=== PATIENT | female | born 1970 | race Caucasian/White ===

== ENCOUNTER 2024-04-18 10:42 | Emergency (ER) | payer BC, SELFPAY ==
[2024-04-18 10:49] VITALS: BP 117/101
--- NOTE | 2024-04-18 11:06 | ED.GENMED ---
History of Present Illness
General
Chief Complaint: Cold/Flu/URI Symptoms
Source: patient
Exam Limitations: none
Time Seen by Provider: 04/18/24 10:52
History of Present Illness
History of Present Illness:
53-year-old female presents with persistent cough and fever over the past 5 days. 3 days ago she saw her family doctor had a negative COVID test. She was thought to have a viral illness. Over the weekend she persisted to have a fever as high as
102 with persistent dry nonproductive cough. She notes myalgias. She notes fatigue. No vomiting. Remotely she has a history of aortic valve replacement with repair of aortic aneurysm. This resulted in infection 'around her heart.' She had
long-term antibiotics for this and repeat surgery. She is concerned that this may progress given her history. She does not smoke. No leg swelling or calf pain. She is not anticoagulated. She denies hemoptysis.
Past History
Past History
ED Past Medical History: Valvular disease (Moderate aortic regurgitation.), Psychiatric (Anxiety/depression), Other (Recurrent pericarditis, chronic daily chest pain) and Other (Questionable autoimmune disease although extensive workup has been
unremarkable.)
ED Past Surgical History: Cardiac (Aortic valve replacement January 2018), Tonsilectomy and Other ([place] teeth, gastric sleeve surgery 01/2007)
Social History
Tobacco: Non-smoker
Alcohol: None
Drug: Marijuana (Prescribed)
Personal:
Living: with family
Employment: Employed
Family History
Family History: Other (No significant)
Phy Exam
Physical Exam
Physical Exam:
General: Slightly ill-appearing female no acute respiratory distress
HEENT normocephalic atraumatic neck is supple
Heart: Regular rate and rhythm
Lungs: Coarse bilaterally slight wheeze no obvious rales
Abdomen is soft nontender nondistended extremities: No cyanosis or edema
Extremities: No cyanosis
Skin warm no rash
Course
Orders/Labs/Results
Orders:
Orders
04/18/24 11:04
Ipratropium/Albuterol Sulfate [Duoneb] 3 ml INH R NOW ONE
04/18/24 11:05
CR Chest - 2 Views Urgent
Comment:
Reason For Exam: cough, fever
04/18/24 11:09
0.9% Sodium Chloride 1000 ml [Nss] 1,000 ml IV BOLUS
04/18/24 11:11
COVID-19 Antigen Urgent
Source: Nasal Swab
Complete Blood Count/With Diff Urgent
Comprehensive Metabolic Panel Urgent
Influenza A+B Rapid Molecular Urgent
BOYD Source: Nasal Swab
Specimen Description:
04/18/24 11:54
Ketorolac [Toradol] 15 mg IV NOW STA
Abnormal Lab Results
04/18/24
11:11
MPV 10.6 H fL
(7.4-10.4)
Absolute Lymphs (auto) 1.0 L 10^3/uL
(1.2-3.4)
Neutrophils % 75.3 H %
(42.2-75.2)
Lymphocytes % 13.8 L %
(20.5-51.1)
Carbon Dioxide 21 L mmol/L
(22-30)
Glucose 132 H mg/dl
(70-99)
AST 47 H U/L
(14-36)
Total Protein 6.2 L g/dl
(6.3-8.2)
04/18/24 11:11
04/18/24 11:11
Vital Signs
Initial and Last Documented VS:
Initial Vital Signs
Temp Pulse Resp BP Pulse Ox
99.3 F 89 16 117/101 698
04/18/24 10:49 04/18/24 10:49 04/18/24 10:49 04/18/24 10:49 04/18/24 10:49
Last Documented Vital Signs
Temp Pulse Resp BP Pulse Ox
99.2 F 89 16 117/101 698
04/18/24 11:21 04/18/24 10:49 04/18/24 10:49 04/18/24 10:49 04/18/24 10:49
MDM/Problems Addressed
Differential Diagnosis Includes:
Fever cough fatigue. Question viral illness such as influenza or COVID. These tests are pending. Will check for pneumonia with x-ray. DuoNeb ordered. Check labs.
*Critical Care Note
Total Time (30-74mins, 75-104mins- exclusive of procedures): Not Applicable
Update Note
Update Note:
Patient tested positive for influenza B COVID-negative chest x-ray clear labs reviewed without significant finding. She was hydrated and given DuoNeb and Toradol. She is resting comfortably. Consider Tamiflu however not indicated at this time
given duration of illness. Recommended supportive care at home with fluids rest and NSAIDs. Stable for discharge
ED Attending Note
-
Portions of this chart may have been created with voice recognition software.� Occasional wrong word or��sound alike� substitutions may have occurred due to the inherent limitations of voice recognition software.
Discharge Plan
Departure
Patient Disposition: Home (Routine Discharge)
Date of Disposition: 04/18/24
Time of Disposition: 13:00
Patient with high blood pressure during this ER visit?: No
Discharge Problem:
Influenza B
Instructions: Viral Syndrome (DC)
Prescriptions:
No Action
lisinopril 5 MG tablet
5 mg PO DAILY
bupropion HCl 150 MG tablet extended release 24 hr
150 mg PO DAILY
ibuprofen-famotidine [Duexis] 1 EACH tablet
1 ea PO BID
cephalexin [Keflex] 500 MG capsule
500 mg PO Q6 Qty: 28 0RF
Saccharomyces boulardii [Florastor] 250 MG capsule
250 mg PO BID Qty: 30 0RF
Referrals:
Jermaine Medellin MD [Family Provider] -
Activity Restrictions/Additional Instructions:
Rest. Drink plenty of fluids. You may use ibuprofen or Tylenol for fever. Return for worsening symptoms otherwise follow-up with family doctor
Interventions
Interventions:
*Risk Screen - Suicide Last Done: 04/18/24 11:39
*General Assessment Last Done: 04/18/24 11:39
*Neglect/Abuse Screening Last Done: 04/18/24 11:39
ED- Pulmonary Assessment Last Done: 04/18/24 11:38
Discharge Date and Time
Print Language: CONGOLESE
[2024-04-18] MEDS: DUONEB 3 ML INH (11:21)
[2024-04-18] MEDS: NSS 1000 IV (11:22)
[2024-04-18 11:29] LABS: % Basophils 0.6 % (0-2); % Eosinophils 1.3 % (0-6); % Immature Granulocytes 0.4 % (0-0.5); % Lymphocytes 13.8 % (20.5-51.1); % Monocytes 8.6 % (1.7-9.3); % Neutrophils 75.3 % (42.2-75.2); Absolute Eosinophils 0.1 10^3/uL (0-0.7); Absolute Monocytes 0.6 10^3/uL (0.1-0.6); Absolute Neutrophils 5.2 10^3/uL (1.4-6.5); Hematocrit 38.3 % (37.0-47.0); Hemoglobin 13.2 g/dL (12.0-16.0); Mean Corp Hgb Conc. 34.5 g/dL (33.0-37.0); Mean Corpuscular Hgb 30.9 pg (27.0-31.0); Mean Corpuscular Volume 89.7 fL (81.0-99.0); Mean Platelet Volume 10.6 fL (7.4-10.4); Nucleated Red Blood Cells % 0 %; Platelet Count 197 10^3/uL (130-400); Red Blood Cell Count 4.27 10^6/uL (4.20-5.40); Red Cell Dist. Width 12.4 % (11.5-14.5); White Blood Cell Count 6.9 10^3/uL (4.8-10.8)
[2024-04-18 11:49] LABS: COVID-19 Antigen Negative (Negative)
[2024-04-18] MEDS: TORADOL 15 MG IV (11:56)
[2024-04-18 11:58] LABS: ALT (SGPT) 32 U/L (0-35); AST (SGOT) 47 U/L (14-36); Albumin 3.9 g/dl (3.5-5.0); Alkaline Phosphatase 110 U/L (38-126); Blood Urea Nitrogen 16 mg/dl (7-17); Calcium 9.7 mg/dl (8.4-10.2); Carbon Dioxide 21 mmol/L (22-30); Chloride 104 mmol/L (98-107); Glucose 132 mg/dl (70-99); Potassium 3.8 mmol/L (3.5-5.1); Sodium 138 mmol/L (135-145); Total Bilirubin 0.8 mg/dl (0.2-1.3); Total Protein 6.2 g/dl (6.3-8.2); eGFR > 60.00
[2024-04-18 13:16] VITALS: BP 112/96
== END 2024-04-18 14:25 | disposition home or self-care (01) ==
LOC: EMR 10:42
PROVIDERS: Physician Assistant; EMERGENCY PHYSICIAN Emergency Medicine; FAMILY PHYSICIAN Internal Medicine
DX: J10.1 Influenza due to other identified influenza virus with other respiratory manifestations (principal); Z11.52 Encounter for screening for COVID-19; F41.9 Anxiety disorder, unspecified; F32.A Depression, unspecified; Z95.2 Presence of prosthetic heart valve; Z98.84 Bariatric surgery status; Z88.1 Allergy status to other antibiotic agents; Z88.2 Allergy status to sulfonamides
CPT/HCPCS: 99284; 96374; 96361; 94640; 71046; 80053; 85025; 87502; 87811

== ENCOUNTER → 2024-08-29 15:16 | Outpatient (REF) | payer BC, SELFPAY | LOC: HWRAD 15:16 | PROVIDERS: ATTENDING PHYSICIAN Hospitalist | DX: R51.9 Headache, unspecified (principal) | CPT/HCPCS: 70450 ==

== ENCOUNTER → 2024-10-22 14:44 | Outpatient (REF) | payer BC, SELFPAY | LOC: WDC 14:44 | PROVIDERS: ATTENDING PHYSICIAN Hospitalist | DX: Z12.31 Encounter for screening mammogram for malignant neoplasm of breast (principal) | CPT/HCPCS: 77063; 77067 ==

== ENCOUNTER 2024-12-27 13:56 | Inpatient (IN) | payer BC, SELFPAY ==
[2024-12-27] VITALS (13 sets, daily range): BP systolic 164–190; BP diastolic 89–108; BMI 26.3; BMI 24.4
[2024-12-27 07:40] LABS: % Basophils 0.6 % (0-2); % Eosinophils 0.7 % (0-6); % Immature Granulocytes 0.2 % (0-0.5); % Lymphocytes 17.9 % (20.5-51.1); % Monocytes 6.5 % (1.7-9.3); % Neutrophils 74.1 % (42.2-75.2); Absolute Basophils 0.1 10^3/uL (0-0.2); Absolute Eosinophils 0.1 10^3/uL (0-0.7); Absolute Lymphocytes 2.2 10^3/uL (1.2-3.4); Absolute Monocytes 0.8 10^3/uL (0.1-0.6); Absolute Neutrophils 9.2 10^3/uL (1.4-6.5); Hematocrit 41.2 % (37.0-47.0); Hemoglobin 14.7 g/dL (12.0-16.0); Mean Corp Hgb Conc. 35.7 g/dL (33.0-37.0); Mean Corpuscular Hgb 31.9 pg (27.0-31.0); Mean Corpuscular Volume 89.4 fL (81.0-99.0); Mean Platelet Volume 10.1 fL (7.4-10.4); Nucleated Red Blood Cells % 0 %; Platelet Count 246 10^3/uL (130-400); Red Blood Cell Count 4.61 10^6/uL (4.20-5.40); Red Cell Dist. Width 12.3 % (11.5-14.5); White Blood Cell Count 12.4 10^3/uL (4.8-10.8)
[2024-12-27 07:55] LABS: ALT (SGPT) 19 U/L (0-35); AST (SGOT) 26 U/L (14-36); Albumin 4.8 g/dl (3.5-5.0); Alkaline Phosphatase 86 U/L (38-126); Blood Urea Nitrogen 23 mg/dl (7-17); Calcium 10.2 mg/dl (8.4-10.2); Carbon Dioxide 21 mmol/L (22-30); Chloride 108 mmol/L (98-107); Glucose 157 mg/dl (70-99); Lipase 237 U/L (23-300); Potassium 3.5 mmol/L (3.5-5.1); Sodium 142 mmol/L (135-145); Total Bilirubin 1.4 mg/dl (0.2-1.3); Total Protein 7.3 g/dl (6.3-8.2); eGFR 58.97
--- NOTE | 2024-12-27 08:53 | ED.GENMED ---
History of Present Illness
General
Chief Complaint: Abdominal Symptoms
Source: patient
Exam Limitations: none
Time Seen by Provider: 12/27/24 08:45
History of Present Illness
History of Present Illness:
54yoF with a history of hypertension, cluster headaches, and depression presenting for evaluation of vomiting. Symptoms woke her up from sleep around 3 AM this morning. She reports pain in her epigastric region, nausea, and vomiting. She is also
having some loose bowel movements. She is concerned she may be having a medication side effect. She started taking Zepbound about 3 months ago for weight loss. She is otherwise asymptomatic and denies any chest pain, shortness of breath,
hematemesis, fevers. She denies any suspicious food intake, recent travel, or sick contacts. Previous abdominal surgeries include a gastric sleeve in 2015.
Past History
Past History
ED Past Medical History: Valvular disease (Moderate aortic regurgitation.), Psychiatric (Anxiety/depression), Other (Recurrent pericarditis, chronic daily chest pain) and Other (Questionable autoimmune disease although extensive workup has been
unremarkable.)
ED Past Surgical History: Cardiac (Aortic valve replacement January 2018), Tonsilectomy and Other ([place] teeth, gastric sleeve surgery 01/2007)
Social History
Tobacco: Non-smoker
Alcohol: None
Drug: Marijuana (Prescribed)
Personal:
Living: with family
Employment: Employed
Family History
Family History: Other (No significant)
Phy Exam
Physical Exam
Physical Exam:
Actively retching during exam
General Physical Exam
General Presentation: well appearing and mild distress
General Skin: warm and dry
General Habitus: normal
General Mental: alert
ENT Exam
ENT Exam: normocephalic
Cardiovascular Exam
Cardiovascular Exam: regular rate/rhythm
Pulmonary Exam
Pulmonary Exam: lungs clear, no respiratory distress, no rales, no crackles, no rhonchi and no wheezing
Gastrointestinal Exam
Gastrointestinal Exam: soft, non distended and tender (+Epigastric tenderness. Abdomen soft, non-distended. No rebound or guarding.)
Neurological Exam
Neurological Exam: alert
Douglas Coma Scale
Eye Opening: Spontaneous
Verbal Response: Oriented
Motor Response: Obeys Commands
GCS Total Score: 15
Skin Exam
Skin Exam: normal color and warm/dry
Psychiatric Exam
Psychiatric Exam: normal mood/affect
Course
Orders/Labs/Results
Orders:
Orders
12/27/24 07:14
Electrocardiogram (*1) Urgent
Reason for Study: Abdominal Pain
EKG- Treatment ONCE
12/27/24 07:26
Complete Blood Count/With Diff Urgent
Comprehensive Metabolic Panel Urgent
Lipase Urgent
12/27/24 08:52
CT Abd/pel W Iv And Oral Contr Urgent
Comment:
Reason For Exam: epigastric pain, vomiting, prior gastric sleeve
0.9% Sodium Chloride 1000 ml [Nss] 1,000 ml IV BOLUS
Iohexol [Omnipaque] See Protocol PO NOW STA
Ondansetron Injectable [Zofran] 4 mg IV NOW STA
12/27/24 08:58
Lactate Level [Lactic Acid] Urgent
Troponin I Urgent
12/27/24 09:26
Diphenhydramine [Benadryl] 25 mg IV NOW STA
Metoclopramide [Reglan] 10 mg IV NOW STA
12/27/24 10:19
droPERidol [Inapsine] 1.25 mg IV NOW STA
12/27/24 10:20
Cardiac Monitoring- Treatment ONCE
12/27/24 13:31
Admit/Transfer Patient As Directed
Co-Sign Provider:
Level of Care: Inpatient admission
Assign to:: Medical/Surgical
Physician / Group: [id number]
Diagnosis: acute pancolitis
Reason for Hospitalization: acute pancolitis
Expected length of stay greater than two midnights?: Yes
ELOS- Estimated Length of Stay in days: 2
I certify the patient meets the requirements for IP care: Yes
12/27/24 13:32
Code Status As Directed
Resuscitation Status: Full Code
PRN Pain Medication Management As Directed
May give lesser potent ordered pain med per pt: Yes
preference::
Protocol:: Medication orders for pain may be administered in a
manner that supports deferring to patient preference
when the pt is:
- Requesting an ordered lesser potent pain medication.
Least to most potent pain medications are defined
as: acetaminophen < NSAID < tramadol < opioids
(morphine, oxycodone, hydromorphone).
- Requesting a lesser dose of the same medication IF
ORDERED.
- Requesting a less intrusive route of administration
if both routes are prescribed by the provider (PO <
IV).
12/27/24 13:38
Norovirus by PCR Routine
BOYD Source: Feces/Stool
Specimen Description:
Stool Culture Routine
BOYD Source: Feces/Stool
Specimen Description:
Abnormal Lab Results
12/27/24 12/27/24
07:26 08:58
WBC 12.4 H 10^3/uL
(4.8-10.8)
MCH 31.9 H pg
(27.0-31.0)
Absolute Neuts (auto) 9.2 H 10^3/uL
(1.4-6.5)
Absolute Monos (auto) 0.8 H 10^3/uL
(0.1-0.6)
Lymphocytes % 17.9 L %
(20.5-51.1)
Chloride 108 H mmol/L
(98-107)
Carbon Dioxide 21 L mmol/L
(22-30)
BUN 23 H mg/dl
(7-17)
Creatinine 1.1 H mg/dL
(0.6-1.0)
Glucose 157 H mg/dl
(70-99)
Lactic Acid 2.9 H mmol/L
(0.7-2.0)
Total Bilirubin 1.4 H mg/dl
(0.2-1.3)
12/27/24 07:26
12/27/24 07:26
Vital Signs
Initial and Last Documented VS:
Initial Vital Signs
Temp Pulse Resp BP Pulse Ox
98.3 F 87 16 174/102 98
12/27/24 07:11 12/27/24 07:11 12/27/24 07:11 12/27/24 07:11 12/27/24 07:11
Last Documented Vital Signs
Temp Pulse Resp BP Pulse Ox
98.3 F 81 24 184/92 97
12/27/24 07:11 12/27/24 15:30 12/27/24 15:30 12/27/24 14:00 12/27/24 15:30
MDM/Problems Addressed
Differential Diagnosis Includes:
54yoF here with n/v and abd pain since 3am. Hx of gastric sleeve. Started on Zepbound 3 months ago. She is hypertensive with otherwise stable vitals. She is retching during exam. No signs of peritonitis on abdominal exam. Differential diagnosis
includes but is not limited to: gastroenteritis, internal hernia/SBO, pancreatitis, dehydration
Initial ED plan: Labs sent in triage. WBC 12.9. Creatinine 1.1. EKG shows NSR with ST/T wave changes which are new from prior EKG in 2021. She denies any chest pain. Will check troponin, lactate, and CT abdomen with IV/PO contrast. IV Zofran and
fluid bolus.
*EKG
Interpreted by ED Provider?: Yes
EKG Intrepretation Date: 12/27/24
Heart Rate: 65
Rate: normal
Rhythm: sinus
Girdler: normal axis
Interval: normal interval
Ischemia: non-specific ST changes (ST/T wave changes in inferolateral leads)
*Critical Care Note
Total Time (30-74mins, 75-104mins- exclusive of procedures): Not Applicable
Update Note
Update Note:
Troponin WNL. Lactate 2.3. CT shows mild pancolitis with L hydronephrosis from chronic UPJ obstruction. Patient with persistent vomiting and requiring multiple rounds of antiemetics. She was ultimately given Reglan, Benadryl, and droperidol without
improvement. She is unable to tolerate PO intake and patient admitted for intractable symptoms.
ED Attending Note
-
Portions of this chart may have been created with voice recognition software.� Occasional wrong word or��sound alike� substitutions may have occurred due to the inherent limitations of voice recognition software.
Discharge Plan
Departure
Patient Disposition: Admit
Date of Disposition: 12/27/24
Time of Disposition: 13:15
Presentation/result/management discussed w/ accepting MD/DO: Hospitalist
Discharge Problem:
Intractable nausea and vomiting
Interventions
Interventions:
*Risk Screen - Suicide Last Done: 12/27/24 07:11
*General Assessment Last Done: 12/27/24 09:04
*Neglect/Abuse Screening Last Done: 12/27/24 07:11
*ED- Fall Risk Assessment Last Done: 12/27/24 09:04
*ED COVID-19 Vaccine History Last Done: 12/27/24 09:04
SN-Qobqiq-Ghqadzruof Assessment Last Done: 12/27/24 09:04
[2024-12-27] MEDS: ZOFRAN 4 MG IV ×2 (09:02→17:39)
[2024-12-27] MEDS: NSS 1000 IV ×2 (09:02→17:38)
[2024-12-27] MEDS: OMNIPAQUE 50 ML PO (09:19)
[2024-12-27 09:24] LABS: Lactic Acid 2.9 mmol/L (0.7-2.0)
[2024-12-27] MEDS: REGLAN 10 MG IV (09:28)
[2024-12-27] MEDS: BENADRYL 25 MG IV (09:28)
[2024-12-27 09:36] LABS: Troponin I < 0.012 ng/ml
[2024-12-27] MEDS: INAPSINE 1.25 MG IV (10:23)
--- NOTE | 2024-12-27 13:34 | HPS.HSE ---
Family Physician
-
Family Physician: Eloisa Castillo MD
Chief Complaint
-
vomiting
History of Present Illness
54-year-old female past medical history of gastric sleeve, aortic valve replacement, recurrent pericarditis, possible undiagnosed rheumatologic condition, hypertension, cluster headaches, anxiety/depression, presenting with vomiting since this
morning. She has pain in the epigastric region, nausea and vomiting. She also has slight loose stools. She started taking Zepbound 3 months ago for weight loss and has some nausea from the but no severe side effects.. Denies any chest pain,
shortness of breath, fever. Denies any recent restaurant food or outside food, sick contacts. Denies any fevers or chills.
She had a urinary tract infection 2 weeks ago treated with antibiotics. She denies any urinary symptoms such as dysuria or frequency at this time. She denies any history of urologic instrumentation. Denies any history of urologic problems
previously. Denies blood in the urine. Denies flank pain. No history of kidney stones.
She does use medical marijuana. Denies smoking. Denies alcohol.
Medical History
Past Medical History
Past Medical History: Reports Other (gastric sleeve, aortic valve replacement, recurrent pericarditis, possible undiagnosed rheumatologic condition, hypertension, cluster headaches, anxiety/depression, )
Past Surgical History: Reports Other (Cardiac (Aortic valve replacement January 2018), Tonsilectomy and Other ([place] teeth, gastric sleeve surgery 01/2007))
Social History
Tobacco: Non-smoker
Alcohol: None
Drug: Marijuana
Family History
Family History: Not pertinent
Allergies / Home Medications
Allergies reflects when Allergies were last updated in [facility].
Home Medications with original date entered in [facility]
Allergy/Medication List:
Allergies
Allergy/AdvReac Type Severity Reaction Status Date / Time
erythromycin base Allergy Vomiting Verified 12/27/24 07:11
[Erythromycin Base]
Sulfa (Sulfonamide Allergy Unknown Verified 12/27/24 07:11
Antibiotics)
Home Medications
bupropion HCl 300 mg 24 hr tablet, extended release (Wellbutrin XL) 300 mg PO DAILY 12/27/24
escitalopram oxalate 10 mg tablet (Lexapro) 10 mg PO HS 12/27/24
lorazepam 0.5 mg tablet 0.5 mg PO HSPRN PRN SLEEP 12/27/24
tirzepatide (weight loss) 5 mg/0.5 mL subcutaneous pen injector (Zepbound) 5 mg SC WE 12/27/24
verapamil 40 mg tablet 40 mg PO TID 12/27/24
Review of Systems
-
History Source: Patient
A 12 point ROS was completed and negative except as noted: Yes
Constitutional: Reports No Symptoms
EENT: Reports No Symptoms
Respiratory: Reports No Symptoms
Cardiac: Reports No Symptoms
Abdomen/GI: Reports See HPI
: Reports No Symptoms
Musculoskeletal: Reports No Symptoms
Skin: Reports No Symptoms
Neurological: Reports No Symptoms
Endocrine: Reports No Symptoms
Hematologic/Lymphatic: Reports No Symptoms
Psych: Reports No Symptoms
Physical Exam
Vital Signs
Vital Signs
Temp Pulse Resp BP Pulse Ox
98.3 F 82 25 182/96 98
12/27/24 07:11 12/27/24 13:00 12/27/24 13:00 12/27/24 13:00 12/27/24 13:00
Physical Exam
General: Well Developed, Well Nourished and No Apparent Distress
HEENT: NormoCephalic, Moist mucous membranes and Atraumatic
Respiratory: Clear
Cardiac: S1/S2 and Regular Rhythm; No Murmur or Rub
GI: Soft, Non Distended, Normal Bowel Sounds and Tender; No Organomegaly
Rectal: Deferred by Provider
Musculoskeletal: No Clubbing, No Cyanosis and No Edema
Skin: No Rash
Neuro: Nonfocal/grossly intact
Laboratory Results
-
12/27/24 07:26
12/27/24 07:26
Laboratory Results
Lactic Acid 2.9 mmol/L (0.7-2.0) H 12/27/24 08:58
Total Bilirubin 1.4 mg/dl (0.2-1.3) H 12/27/24 07:26
AST 26 U/L (14-36) 12/27/24 07:26
ALT 19 U/L (0-35) 12/27/24 07:26
Alkaline Phosphatase 86 U/L (38-126) 12/27/24 07:26
Troponin I < 0.012 ng/ml 12/27/24 08:58
Lipase 237 U/L (23-300) 12/27/24 07:26
Data Reviewed
-
Lab Data: Labs Reviewed by me
Old Records: Reviewed
Impression/Plan
-
IMPRESSION:
PLAN:
# Acute pancolitis likely viral
-Lipase 237
-Leukocytosis
-Lactic acid 2.9
-CT abdomen pelvis shows suspected mild uncomplicated pancolitis likely infectious/inflammatory, trace intravesical gas possibly cystitis or recent instrumentation, moderate left hydronephrosis with markedly dilated renal pelvis progress from prior
likely chronic UPJ obstruction
- N.p.o.
- IV fluids
-Hold off antibiotics
- Hold Zepbound
- Check norovirus, stool culture if able
- As needed Dilaudid, Zofran as needed
# Acute kidney injury likely.
- IV fluids
#Moderate left hydronephrosis with markedly dilated renal pelvis likely chronic UPJ obstruction
-Had UTI 2 weeks ago successfully treated
-No urinary symptoms currently
- Outpatient follow-up with urology
# Uncontrolled hypertension secondary to abdominal pain
- Blood pressure 180s
- As needed hydralazine
# History of gastric sleeve
Obesity
- Hold Zepbound
Aortic valve replacement
History of recurrent pericarditis
History of possible undiagnosed rheumatological condition
Essential hypertension
- Continue verapamil
History of cluster headaches
Anxiety/depression
- Continue Ativan, Lexapro, bupropion
Medical marijuana user
Full code
DVT prophylaxis�heparin
N.p.o.
--- NOTE | 2024-12-27 14:31 | CM ---
CM met with pt bedside
Pt resides with her SO in a 2SH with 13STE and full flight to 2nd floor
SO's 2 dtrs are in the home part-time
Pt is indep with her ADLs, works FT out of the home
Denies use of DMEs and financial insecurities
PCP- Eloisa Castillo
Rx- [facility] [address]
Discharge Disposition- anticipate home no needs
[2024-12-27] MEDS: ISOPTIN 40 MG PO ×2 (17:49→21:10)
[2024-12-27] MEDS: DILAUDID 0.25 MG IV (21:10)
[2024-12-27] MEDS: HEPARIN 5000 UNITS SC (21:13)
[2024-12-28 00:08] VITALS: BP 174/70
[2024-12-28] MEDS: ZOFRAN 4 MG IV ×3 (00:53→16:24)
[2024-12-28] MEDS: DILAUDID 0.25 MG IV ×2 (06:31→21:31)
[2024-12-28] MEDS: NSS 1000 IV ×2 (06:33→16:11)
[2024-12-28 07:38] VITALS: BP 135/74
[2024-12-28] MEDS: WELLBUTRIN XL (24 hour extended release) 300 MG PO (08:25)
[2024-12-28] MEDS: ISOPTIN 40 MG PO ×3 (08:25→21:25)
[2024-12-28] MEDS: HEPARIN 5000 UNITS SC ×2 (08:26→19:31)
[2024-12-28 08:36] LABS: % Basophils 0.2 % (0-2); % Immature Granulocytes 0.4 % (0-0.5); % Lymphocytes 9.7 % (20.5-51.1); % Monocytes 8.8 % (1.7-9.3); % Neutrophils 80.9 % (42.2-75.2); Absolute Lymphocytes 1.1 10^3/uL (1.2-3.4); Absolute Neutrophils 9.1 10^3/uL (1.4-6.5); Hematocrit 37.7 % (37.0-47.0); Hemoglobin 13.5 g/dL (12.0-16.0); Mean Corp Hgb Conc. 35.8 g/dL (33.0-37.0); Mean Corpuscular Hgb 32.1 pg (27.0-31.0); Mean Corpuscular Volume 89.5 fL (81.0-99.0); Mean Platelet Volume 9.8 fL (7.4-10.4); Nucleated Red Blood Cells % 0 %; Platelet Count 202 10^3/uL (130-400); Red Blood Cell Count 4.21 10^6/uL (4.20-5.40); Red Cell Dist. Width 12.4 % (11.5-14.5); White Blood Cell Count 11.2 10^3/uL (4.8-10.8)
[2024-12-28 09:44] LABS: ALT (SGPT) 18 U/L (0-35); AST (SGOT) 34 U/L (14-36); Albumin 4.3 g/dl (3.5-5.0); Alkaline Phosphatase 71 U/L (38-126); Blood Urea Nitrogen 16 mg/dl (7-17); Calcium 9.4 mg/dl (8.4-10.2); Carbon Dioxide 22 mmol/L (22-30); Chloride 110 mmol/L (98-107); Estimated Creatinine Clearance 77 ml/min; Glucose 79 mg/dl (70-99); Potassium 3.4 mmol/L (3.5-5.1); Sodium 141 mmol/L (135-145); Total Bilirubin 1.3 mg/dl (0.2-1.3); Total Protein 6.5 g/dl (6.3-8.2); eGFR > 60.00
[2024-12-28 10:10] LABS: Lactic Acid 2.1 mmol/L (0.7-2.0)
[2024-12-28] MEDS: TIGAN 200 MG IM (10:39)
--- NOTE | 2024-12-28 12:15 | CM ---
Chart reviewed and mental health case manager met with patient this am, plan is to home when stable, no needs.
Plan; Home when stable.
[2024-12-28] MEDS: COMPAZINE 10 MG IV (12:26)
--- NOTE | 2024-12-28 13:05 | W.PN.HOSP.TC ---
Today's Communication/Plan
-
Monitor vital signs see plan
Check stool studies
Urology evaluation
Check UA
If symptoms continue to get worse then will start antibiotics
Trend lactate
Assessment / Plan
Assessment / Plan
General: Well Developed, Well Nourished and No Apparent Distress
HEENT: NormoCephalic, Moist mucous membranes and Atraumatic
Respiratory: Clear
Cardiac: S1/S2 and Regular Rhythm; No Murmur or Rub
GI: Soft, Non Distended, Normal Bowel Sounds and Tender
Musculoskeletal: No Edema
Neuro: Nonfocal/grossly intact
abd pain V,V likely 2.2 pancolitis, also has moderate left hydronephrosis with markedly dilated renal pelvis with chronic UPJ obstruction. Discussed with patient and she never had any history of UPJ obstruction. Recently treated with UTI. Check
UA.
meets SIRS criteria (leukocytosis, tachypnea)
-Lipase 237
-Leukocytosis
-Lactic acidosis; trend. check bcx
-CT abdomen pelvis shows suspected mild uncomplicated pancolitis likely infectious/inflammatory, trace intravesical gas possibly cystitis or recent instrumentation, moderate left hydronephrosis with markedly dilated renal pelvis progress from prior
likely chronic UPJ obstruction
- N.p.o. for now
- IV fluids
-Hold off antibiotics
- Hold Zepbound
- Check norovirus, stool culture if able; cdiff given recent abx. If symptoms do not improve then will need to start antibiotic
- As needed Dilaudid, Zofran as needed
# Acute kidney injury likely.
- IV fluids
#Moderate left hydronephrosis with markedly dilated renal pelvis likely chronic UPJ obstruction
-Had UTI 2 weeks ago successfully treated
check ua
consult urology
hypokalemia
replete
# Uncontrolled hypertension secondary to abdominal pain
- As needed hydralazine
# History of gastric sleeve
Obesity
- Hold Zepbound
Aortic valve replacement
History of recurrent pericarditis
History of possible undiagnosed rheumatological condition
Essential hypertension
- Continue verapamil
History of cluster headaches
Anxiety/depression
- Continue Ativan, Lexapro, bupropion
Medical marijuana user
Full code
DVT prophylaxis�heparin
Anticipated Discharge: 24 - 48 hours
Subjective/Interval History
-
Date of Service: December 28, 2024
has nausea
Objective Data
-
Labs:
Laboratory Results
12/28/24
08:25
WBC 11.2 H
Hgb 13.5
Hct 37.7
Plt Count 202
Sodium 141
Potassium 3.4 L
Chloride 110 H
Carbon Dioxide 22
BUN 16
Creatinine 0.7
Glucose 79
Calcium 9.4
Total Bilirubin 1.3
AST 34
ALT 18
Alkaline Phosphatase 71
Vital Signs:
Vital Signs
Temp Pulse Resp BP Pulse Ox
98.1 F 63 17 135/74 96
12/28/24 07:38 12/28/24 08:25 12/28/24 07:38 12/28/24 08:25 12/28/24 07:38
I&O
12/27/24 12/28/24 12/29/24
06:59 06:59 06:59
Intake Total 1000 / 1000
Output Total 150 / 150 50 / 50
Balance 850 / 850 -50 / -50
[2024-12-28] MEDS: KCL 260 MEQ IV (13:49)
[2024-12-28 14:33] LABS: Lactic Acid 0.8 mmol/L (0.7-2.0)
[2024-12-28 15:15] VITALS: BP 169/101
[2024-12-28 16:20] LABS: Urine Albumin 2+ (Neg - Trace); Urine Bilirubin Negative (Negative); Urine Character Clear (Clear); Urine Color Yellow; Urine Glucose Negative (Negative); Urine Ketone 3+ (Negative); Urine Leukocyte Negative (Negative); Urine Nitrite Negative (Negative); Urine Occult Blood 3+ (Negative); Urine Specific Gravity 1.015 (<1.030); Urine Urobilinogen Negative (Neg - 1+)
[2024-12-28 16:32] LABS: Urine Squamous Cell >30 /LPF (Few)
[2024-12-28 16:33] LABS: Urine Bacteria Few (Negative)
--- NOTE | 2024-12-28 17:49 | W.PN.URO.CBU ---
Today's Communication / Plan
-
no gu changes
Assessment / Plan
-
asx left upj getting worse I doubt this is etiology of todays admit nor is it the source ofn uti 2 aweeks ago but it needs outpatient follow up and possible repair Also air in bladder probaly fron uti 2 weeks ago but needs reevaluation to
make sure its not enterovesical fistula
Diagnosis
-
Date of Service: December 28, 2024
-
Patient Diagnosis:
congenital leftupj stone
Post Op Day:
Objective
-
Vital Signs
Temp Pulse Resp BP Pulse Ox
99.2 F 88 18 169/101 96
12/28/24 15:15 12/28/24 16:09 12/28/24 15:15 12/28/24 16:09 12/28/24 15:15
Intake and Output
12/27/24 12/28/24 12/29/24
06:59 06:59 06:59
Intake Total 1000 / 1000 970 / 970
Output Total 150 / 150 50 / 50
Balance 850 / 850 920 / 920
Intake:
Oral fluids 720 / 720
IV fluids (Total) 1000 / 1000
IV piggybacks 250 / 250
Output:
Emesis 150 / 150 50 / 50
Other:
Number of approximated MODERATE 2
amounts of urine
Number of approximated LARGE 1
amounts of urine
Number of immeasurable emeses? 2 1
Laboratory Results
12/28/24 08:25
12/28/24 08:25
Review of Systems
-
Abdomen/GI: Abdominal Pain and Nausea
: No Symptoms
Physical Exam
-
General - well developed, well nourished, no acute distress
Chest - clear bilaterally
Abdomen - soft, non-tender, positive bowel sounds, no CVAT, no incisional pain or distention
Genitalia - normal
Rectal - normal
Skin - warm & dry with no rash
Neuro - AOx3, no motor deficits
Extremities - no clubbing, no cyanosis, no edema
Care Review
Data Reviewed
Discussed with: Hospitalist
CT Scan: Image Pers Reviewed
[2024-12-28] MEDS: COMPAZINE 5 MG IV (19:31)
[2024-12-28 23:17] VITALS: BP 158/76
[2024-12-29] MEDS: DILAUDID 0.5 MG IV ×2 (01:31→15:37)
[2024-12-29] MEDS: NSS 1000 IV ×2 (02:28→14:09)
[2024-12-29 07:35] VITALS: BP 166/99
[2024-12-29] MEDS: DILAUDID 0.25 MG IV ×3 (07:52→22:22)
[2024-12-29] MEDS: WELLBUTRIN XL (24 hour extended release) 300 MG PO (07:57)
[2024-12-29] MEDS: HEPARIN 5000 UNITS SC ×2 (07:58→19:33)
[2024-12-29] MEDS: ISOPTIN 40 MG PO ×3 (08:10→21:00)
[2024-12-29 09:00] LABS: % Basophils 0.3 % (0-2); % Immature Granulocytes 0.3 % (0-0.5); % Lymphocytes 10.5 % (20.5-51.1); % Monocytes 11.4 % (1.7-9.3); % Neutrophils 77.5 % (42.2-75.2); Absolute Monocytes 1.1 10^3/uL (0.1-0.6); Absolute Neutrophils 7.3 10^3/uL (1.4-6.5); Hematocrit 41.7 % (37.0-47.0); Hemoglobin 14.6 g/dL (12.0-16.0); Mean Corpuscular Hgb 31.5 pg (27.0-31.0); Mean Corpuscular Volume 89.9 fL (81.0-99.0); Mean Platelet Volume 10.1 fL (7.4-10.4); Nucleated Red Blood Cells % 0 %; Platelet Count 217 10^3/uL (130-400); Red Blood Cell Count 4.64 10^6/uL (4.20-5.40); Red Cell Dist. Width 12.6 % (11.5-14.5); White Blood Cell Count 9.4 10^3/uL (4.8-10.8)
[2024-12-29 09:20] LABS: ALT (SGPT) 20 U/L (0-35); AST (SGOT) 48 U/L (14-36); Alkaline Phosphatase 79 U/L (38-126); Blood Urea Nitrogen 12 mg/dl (7-17); Calcium 9.4 mg/dl (8.4-10.2); Carbon Dioxide 27 mmol/L (22-30); Chloride 105 mmol/L (98-107); Estimated Creatinine Clearance 77 ml/min; Glucose 93 mg/dl (70-99); Potassium 3.4 mmol/L (3.5-5.1); Sodium 138 mmol/L (135-145); Total Bilirubin 1.7 mg/dl (0.2-1.3); Total Protein 6.5 g/dl (6.3-8.2); eGFR > 60.00
[2024-12-29] MEDS: COMPAZINE 5 MG IV (09:31)
[2024-12-29 11:50] VITALS: BP 174/114
[2024-12-29] MEDS: APRESOLINE 5 MG IV (12:13)
--- NOTE | 2024-12-29 12:45 | W.PN.HOSP.TC ---
Today's Communication/Plan
-
monitor vitals
see plan
npo for now
symptoms still persist
GI evaluation
cw IVF
hydralazine prn
Assessment / Plan
Assessment / Plan
General: Well Developed, Well Nourished and No Apparent Distress
HEENT: NormoCephalic, Moist mucous membranes and Atraumatic
Respiratory: Clear
Cardiac: S1/S2 and Regular Rhythm; No Murmur or Rub
GI: Soft, Non Distended, Normal Bowel Sounds and Tender
Musculoskeletal: No Edema
Neuro: Nonfocal/grossly intact
abd pain V,V likely 2.2 pancolitis, also has moderate left hydronephrosis with markedly dilated renal pelvis with chronic UPJ obstruction. Discussed with patient and she never had any history of UPJ obstruction. Recently treated with UTI. UA
without UTI
meets SIRS criteria (leukocytosis, tachypnea)
-Lipase 237
-Leukocytosis
-Lactic acidosis; improved. check bcx pending
-CT abdomen pelvis shows suspected mild uncomplicated pancolitis likely infectious/inflammatory, trace intravesical gas possibly cystitis or recent instrumentation, moderate left hydronephrosis with markedly dilated renal pelvis progress from prior
likely chronic UPJ obstruction
- N.p.o. for now
- IV fluids
-Hold off antibiotics
- Hold Zepbound
- Check norovirus, stool culture if able; cdiff given recent abx. appears no further BM since been here; monitor
-pain control
compazine
could this be 2/2 marijuana use; last use a week ago per patient
GI consulted
# Acute kidney injury
resolved
#Moderate left hydronephrosis with markedly dilated renal pelvis likely chronic UPJ obstruction
-Had UTI 2 weeks ago successfully treated
Evaluated by urology, follow-up outpatient
hypokalemia
replete
# Uncontrolled hypertension secondary to abdominal pain
no hx of HTN
- As needed hydralazine
# History of gastric sleeve
Obesity
- Hold Zepbound
Aortic valve replacement
History of recurrent pericarditis
History of possible undiagnosed rheumatological condition
Essential hypertension
- Continue verapamil
History of cluster headaches
Anxiety/depression
- Continue Ativan, Lexapro, bupropion
Medical marijuana user
Full code
DVT prophylaxis�heparin
Anticipated Discharge: 24 - 48 hours
Subjective/Interval History
-
Date of Service: December 29, 2024
persistent NV and abdominal pain
Objective Data
-
Labs:
Laboratory Results
12/29/24
08:37
WBC 9.4
Hgb 14.6
Hct 41.7
Plt Count 217
Sodium 138
Potassium 3.4 L
Chloride 105
Carbon Dioxide 27
BUN 12
Creatinine 0.7
Glucose 93
Calcium 9.4
Total Bilirubin 1.7 H
AST 48 H
ALT 20
Alkaline Phosphatase 79
Vital Signs:
Vital Signs
Temp Pulse Resp BP Pulse Ox
99.0 F 84 18 174/114 99
12/29/24 11:50 12/29/24 11:50 12/29/24 11:50 12/29/24 11:50 12/29/24 11:50
I&O
12/28/24 12/29/24 12/30/24
06:59 06:59 06:59
Intake Total 1000 / 1000 2169 / 2169
Output Total 150 / 150 50 / 50
Balance 850 / 850 2119
--- NOTE | 2024-12-29 13:10 | CM ---
Chart reviewed, home no needs when stable.
Plan; Home no needs.
--- NOTE | 2024-12-29 13:12 | CON.GI ---
Addendum entered and electronically signed by Gabe Saleem MD 12/29/24 15:38:
The patient was seen and examined by me independently in collaboration with the nurse practitioner.
Past medical history/social history/medications/allergies/family history reviewed.
Lab data and imaging data reviewed.
Patient has only been seen in open access never in the office. This is a 54-year-old female past medical history morbid obesity, gastric sleeve in 2016, on Zepbound, marijuana use presenting with abdominal pain periumbilical nausea and vomiting.
She states she started Zepbound 3 months ago in the last 2 months she increased the dose. Since then she has had 3 episodes of nausea and vomiting intermittently but she feels better immediately after vomiting. However, on Thursday she woke up with
ongoing nausea and vomiting periumbilical pain. She had multiple formed bowel movements on Thursday and no bowel movement since then. She denies any sick contacts, travels, unusual foods, urinary symptoms. She did have recent antibiotics for
urinary tract infection. She also has been on marijuana for many years.
Suspect abdominal pain, nausea and vomiting due to Zepbound, differential diagnosis includes cannabinoid induced hyperemesis versus infectious etiology (pancolitis seen on CT although not much in the way of diarrhea), urologic issues with chronic
UPJ obstruction on CT and recent UTI although denies any urologic symptoms at this time, lower suspicion for peptic ulcer disease normal hemoglobin, patient with sleeve gastrectomy and not gastric bypass, denies NSAIDs. Continue supportive care.
If has ongoing nausea and vomiting, may consider upper endoscopy tomorrow. Stool studies pending.
Original Note:
Consultation
-
Date/Time Consultation Requested: 12/29/24 1249
Date/Time Consultation Performed: 12/29/24 1325
Requesting Provider: Amador Lemons MD
Performing Provider: AMITA Miller, Lana Saleem MD
Reason for Consultation: abdominal pain, nausea, vomiting
Medical History
Chief Complaint / HPI
Chief Complaint: abdominal pain, nausea/vomiting
History of Present Illness:
Pt is a 54yo presents with hx obesity with gastric sleeve 2016 and recent start of Zepbound, AVR, pericarditis, HTN, cluster headache, anxiety/depression presents with vomiting. Pt with recent abx for UTI. She now presents with nausea and
vomiting. On admission noted with mild uncomplicated pancolitis infectious/inflammatory, mild hydronephrosis with likely reflecting chronic UPJ obstruction, trace gas with possible cystitis or recent instrumentation. Gastric bypass changes
demonstrated, normal liver and pancreas. Labs with WBC 12,400, hbg 14.7, K 3.4, creat 1.1, bili 1.7, AST 48, alt 20, alk phos 79 and lipase 237.
In review with patient she has struggled with weight her entire life. She admits to childhood obesity then gastric sleeve with improvement. She recent has wt gain up to 160's and started Zepound 3 months ago. She has lost about 20 lbs since
use. She did increase dose after several week then began 2 weeks ago with nausea and vomiting. She did have some loose stool prior to admission but no further stool and stool cx not sent. She felt ok after episode then recurrence with vomiting
in middle of night some undigested food leading to admission. She does also admits to cannibis use which is chronic without change in pattern use every other day. She denies odynophagia, dysphagia, GERD, hematemesis, or rectal bleeding. Possible
EGD in 2016 with prior gastric sleeve and 07/2023 colonoscopy-non bleeding external and internal hemorrhoids, otherwise normal TI. No NSAID use.
Past Medical History
Past Medical History: HTN, Hypercholesterolemia, Valvular Disease (AVR), Psychiatric (anxiety/depression) and Other (gastric sleeve, pericarditis, cluster headaches)
Past Surgical History: Cardiac (AVR), Tonsilectomy and Other (wisdom teeth, gastric sleeve 2015 )
Social History
Tobacco: Non-Smoker
Alcohol: None
Drug: Marijuana
Personal:
Living: With Family
Employment: Employed
Family History
Family History: Other (no family hx GI issues )
Allergies / Home Medications
Allergy/AdvReac Type Severity Reaction Status Date / Time
erythromycin base Allergy Vomiting Verified 12/27/24 07:11
[Erythromycin Base]
Sulfa (Sulfonamide Allergy Unknown Verified 12/27/24 07:11
Antibiotics)
�Medication �Instructions �Recorded
bupropion HCl 300 mg 24 hr tablet, 300 mg PO DAILY 12/27/24
extended release (Wellbutrin XL)
escitalopram oxalate 10 mg tablet 10 mg PO HS 12/27/24
(Lexapro)
lorazepam 0.5 mg tablet 0.5 mg PO HSPRN PRN SLEEP 12/27/24
tirzepatide (weight loss) 5 mg/0.5 5 mg SC WE 12/27/24
mL subcutaneous pen injector
(Zepbound)
verapamil 40 mg tablet 40 mg PO TID 12/27/24
Review of Systems
-
History Source: Patient
Constitutional: Reports Weight Loss ( 20 lbs )
EENT: Reports No Symptoms
Respiratory: Reports No Symptoms
Cardiac: Reports No Symptoms
Abdomen/GI: Reports Abdominal Pain, Nausea, Vomiting and Diarrhea (slight prior to admission)
: Reports Other (recent dysuria with UTI )
Musculoskeletal: Reports No Symptoms
Skin: Reports No Symptoms
Neurological: Reports Weakness
Endocrine: Reports No Symptoms
Hematologic/Lymphatic: Reports No Symptoms
Vital Signs
Temp Pulse Resp BP Pulse Ox
99.0 F 84 18 174/114 99
12/29/24 11:50 12/29/24 11:50 12/29/24 11:50 12/29/24 11:50 12/29/24 11:50
Physical Exam
Exam
General: Well Developed, Well Nourished and No Apparent Distress
HEENT: Normocephalic and Anicteric
Respiratory: Clear
Cardiac: Regular Rhythm
GI: Soft, Non Tender and Non Distended
Musculoskeletal: No Clubbing and No Cyanosis
Skin: Warm and Dry
Neuro: Awake, Alert and AO x 3
Psych: Calm
Results
WBC 9.4 10^3/uL (4.8-10.8) 12/29/24 08:37
Hgb 14.6 g/dL (12.0-16.0) 12/29/24 08:37
Hct 41.7 % (37.0-47.0) 12/29/24 08:37
MCV 89.9 fL (81.0-99.0) 12/29/24 08:37
Plt Count 217 10^3/uL (130-400) 12/29/24 08:37
Absolute Neuts (auto) 7.3 10^3/uL (1.4-6.5) H 12/29/24 08:37
Sodium 138 mmol/L (135-145) 12/29/24 08:37
Potassium 3.4 mmol/L (3.5-5.1) L 12/29/24 08:37
Chloride 105 mmol/L (98-107) 12/29/24 08:37
Carbon Dioxide 27 mmol/L (22-30) 12/29/24 08:37
BUN 12 mg/dl (7-17) 12/29/24 08:37
Creatinine 0.7 mg/dL (0.6-1.0) 12/29/24 08:37
Calcium 9.4 mg/dl (8.4-10.2) 12/29/24 08:37
Total Bilirubin 1.7 mg/dl (0.2-1.3) H 12/29/24 08:37
AST 48 U/L (14-36) H 12/29/24 08:37
ALT 20 U/L (0-35) 12/29/24 08:37
Alkaline Phosphatase 79 U/L (38-126) 12/29/24 08:37
Lipase 237 U/L (23-300) 12/27/24 07:26
Diagnostic Image Results:
1. Suspect mild uncomplicated pancolitis, likely of infectious/inflammatory etiology.
2. Moderate left hydronephrosis with markedly dilated renal pelvis, progressed from prior and likely reflecting chronic UPJ obstruction.
3. Trace intravesical gas, possibly reflecting cystitis or recent instrumentation.
Prior GI Procedures:
EGD: ? with gastric sleeve
Colonoscopy: [facility] 07/2023 colonoscopy-non bleeding external and internal hemorrhoids, otherwise normal TI.
Assessment / Plan
-
Pt is a 54yo presents with hx obesity with gastric sleeve 2016 and recent start of Zepbound, AVR, pericarditis, HTN, cluster headache, anxiety/depression presents with vomiting. Pt with recent abx for UTI. She now presents with nausea and
vomiting. On admission noted with mild uncomplicated pancolitis infectious/inflammatory, mild hydronephrosis with likely reflecting chronic UPJ obstruction, trace gas with possible cystitis or recent instrumentation. Gastric bypass changes
demonstrated, normal liver and pancreas. Labs with WBC 12,400, hbg 14.7, K 3.4, creat 1.1 bili 1.7, AST 48, alt 20, alk phos 79 and lipase 237. + Cannibis use, no NSAIDs.
-nausea/vomiting
-slight diarrhea prior to admission
-recent start of Zepbound
-CT with pancolitis
-CT with mild hydro/chronic UPJ obstruction/recent UTI
-leukocytosis on admission
-hypokalemia
-AUNDREA on admission
-hx gastric sleeve
other med problems:
-AVR
-pericarditis
-HTN
-headaches
-anxiety/depression
-Cannibis use
-possible rheumatologic issue
PLAN:
etiology related recently started Zepbound (with noted concurrent AUNDREA and vomiting) , pancolitis on CT though only mild diarrhea, urologic issue with recent UTI and noted likely chronic UPJ obstruction/recent UTI , Cannibis hyperemesis vs other
cont supportive care --agree with IVF, antiemetics
repeat LFT's with D bili and lipase in AM as some LFT increased after admission
discussed Zepbound with patient- she plans on stopping medication as close to wt loss goal
await stool studies to be sent
clear diet and advance as tolerated
replete K per hospitalist
Cannibis abstinence
-
-
Thank you for consultation and allowing me to participate in the patient's care. Please call the unit control clerk GI physician during the after hours with any questions or concerns.
[2024-12-29] MEDS: KCL 270 MEQ IV (14:08)
--- NOTE | 2024-12-29 14:58 | W.PN.UPDATE ---
Addendum entered and electronically signed by AMITA Umaña 12/29/24 16:00:
correction to below added to wrong chart
Original Note:
Update Note
Progress Note Update
reviewed with radiology and Dr. Saleem. cecum is about 9.5 cm. I again offered patient rectal or NGT decompression. He was agreeable this am but now refused for nursing staff and now with my further discussion. Encouraged to get OOB- ambulate.
[2024-12-29 15:50] VITALS: BP 158/103
--- NOTE | 2024-12-29 16:25 | W.PN.URO.CBU ---
Today's Communication / Plan
-
per hospitalist no gu intervention
Assessment / Plan
-
asx left upj getting worse I doubt this is etiology of todays admit nor is it the source ofn uti 2 aweeks ago but it needs outpatient follow up and possible repair Also air in bladder probaly fron uti 2 weeks ago but needs reevaluation to
make sure its not enterovesical fistula
Diagnosis
-
Date of Service: December 29, 2024
-
Patient Diagnosis:
Post Op Day:
Patient Diagnosis:
congenital leftupj stone
Post Op Day:
Subjective
-
no gu sxs
Objective
-
Vital Signs
Temp Pulse Resp BP Pulse Ox
99.0 F 99 18 158/103 98
12/29/24 15:50 12/29/24 15:50 12/29/24 15:50 12/29/24 15:50 12/29/24 15:50
Intake and Output
12/28/24 12/29/24 12/30/24
06:59 06:59 06:59
Intake Total 1000 / 1000 2170 / 2170
Output Total 150 / 150 50 / 50
Balance 850 / 850 2120 / 2120
Intake:
Oral fluids 720 / 720
IV fluids (Total) 1000 / 1000 1200 / 1200
IV piggybacks 250 / 250
Output:
Emesis 150 / 150 50 / 50
Other:
Number of approximated MODERATE 2
amounts of urine
Number of approximated LARGE 1
amounts of urine
Number of immeasurable emeses? 2 1
Laboratory Results
12/29/24 08:37
12/29/24 08:37
Review of Systems
-
Abdomen/GI: Abdominal Pain, Nausea and Pain
Physical Exam
-
General - well developed, well nourished, no acute distress
Chest - clear bilaterally
Abdomen - soft, non-tender, positive bowel sounds, no CVAT, no incisional pain or distention
Genitalia - normal
Rectal - normal
Skin - warm & dry with no rash
Neuro - AOx3, no motor deficits
Extremities - no clubbing, no cyanosis, no edema
Incision - clean, dry
Dressing - clean, dry, intact
Care Review
Data Reviewed
Discussed with: Nursing
[2024-12-29] MEDS: NSS IV (21:02)
[2024-12-29 23:30] VITALS: BP 143/96
[2024-12-30] VITALS (7 sets, daily range): BP systolic 16–167; BP diastolic 96–115; BMI 24.4
[2024-12-30] MEDS: COMPAZINE 5 MG IV ×2 (02:19→08:32)
[2024-12-30] MEDS: NSS 1000 IV ×2 (05:36→19:07)
[2024-12-30 08:02] LABS: % Basophils 0.2 % (0-2); % Eosinophils 0.2 % (0-6); % Immature Granulocytes 0.3 % (0-0.5); % Lymphocytes 12.2 % (20.5-51.1); % Monocytes 12.3 % (1.7-9.3); % Neutrophils 74.8 % (42.2-75.2); Absolute Lymphocytes 1.1 10^3/uL (1.2-3.4); Absolute Monocytes 1.1 10^3/uL (0.1-0.6); Absolute Neutrophils 6.9 10^3/uL (1.4-6.5); Hemoglobin 14.7 g/dL (12.0-16.0); Mean Corp Hgb Conc. 35.9 g/dL (33.0-37.0); Mean Corpuscular Hgb 32.2 pg (27.0-31.0); Mean Corpuscular Volume 89.7 fL (81.0-99.0); Mean Platelet Volume 10.5 fL (7.4-10.4); Nucleated Red Blood Cells % 0 %; Platelet Count 212 10^3/uL (130-400); Red Blood Cell Count 4.57 10^6/uL (4.20-5.40); Red Cell Dist. Width 12.4 % (11.5-14.5); White Blood Cell Count 9.3 10^3/uL (4.8-10.8)
[2024-12-30] MEDS: WELLBUTRIN XL (24 hour extended release) 300 MG PO (08:04)
[2024-12-30] MEDS: ISOPTIN 40 MG PO ×3 (08:04→22:14)
[2024-12-30] MEDS: HEPARIN 5000 UNITS SC ×2 (08:05→22:05)
[2024-12-30 08:57] LABS: ALT (SGPT) 20 U/L (0-35); AST (SGOT) 37 U/L (14-36); Albumin 3.9 g/dl (3.5-5.0); Alkaline Phosphatase 78 U/L (38-126); Blood Urea Nitrogen 12 mg/dl (7-17); Calcium 9.4 mg/dl (8.4-10.2); Carbon Dioxide 24 mmol/L (22-30); Chloride 107 mmol/L (98-107); Direct Bilirubin 0.2 mg/dl (0.0-0.4); Estimated Creatinine Clearance 77 ml/min; Glucose 81 mg/dl (70-99); Lipase 172 U/L (23-300); Potassium 3.5 mmol/L (3.5-5.1); Sodium 137 mmol/L (135-145); Total Bilirubin 1.8 mg/dl (0.2-1.3); Total Protein 6.4 g/dl (6.3-8.2); eGFR > 60.00
--- NOTE | 2024-12-30 11:49 | CM ---
CM reviewed chart, reviewed with nurse, plan for EGD today. Patient seen bedside, reports no needs at this time, will continue to follow for all discharge planning needs.
Plan; home no needs anticipated
--- NOTE | 2024-12-30 12:36 | W.PN.HOSP.TC ---
Today's Communication/Plan
-
monitor vitals
see plan
EGD today
NPO
monitor BP closely; if remains high then might need standing medication
Assessment / Plan
Assessment / Plan
General: Well Developed, Well Nourished and No Apparent Distress
HEENT: NormoCephalic, Moist mucous membranes and Atraumatic
Respiratory: Clear
Cardiac: S1/S2 and Regular Rhythm; No Murmur or Rub
GI: Soft, Non Distended, Normal Bowel Sounds and Tender
Musculoskeletal: No Edema
Neuro: Nonfocal/grossly intact
abd pain V,V likely 2.2 pancolitis, also has moderate left hydronephrosis with markedly dilated renal pelvis with chronic UPJ obstruction. Discussed with patient and she never had any history of UPJ obstruction. Recently treated with UTI. UA
without UTI
meets SIRS criteria (leukocytosis, tachypnea)
-Leukocytosis
-Lactic acidosis; improved. check bcx pending
-CT abdomen pelvis shows suspected mild uncomplicated pancolitis likely infectious/inflammatory, trace intravesical gas possibly cystitis or recent instrumentation, moderate left hydronephrosis with markedly dilated renal pelvis progress from prior
likely chronic UPJ obstruction
- N.p.o. for EGD
- IV fluids
-Hold off antibiotics
- Hold Zepbound
- Check norovirus, stool culture if able; cdiff given recent abx. appears no further BM since been here; monitor
-pain control
compazine
could this be 2/2 marijuana use; last use a week ago per patient
GI following; plan for EGD 12/30
# Acute kidney injury
resolved
#Moderate left hydronephrosis with markedly dilated renal pelvis likely chronic UPJ obstruction
-Had UTI 2 weeks ago successfully treated
Evaluated by urology, follow-up outpatient
hypokalemia
replete
# Uncontrolled hypertension secondary to abdominal pain
no hx of HTN
- As needed hydralazine
# History of gastric sleeve
Obesity
- Hold Zepbound
Aortic valve replacement
History of recurrent pericarditis
History of possible undiagnosed rheumatological condition
Essential hypertension
- Continue verapamil
History of cluster headaches
Anxiety/depression
- Continue Ativan, Lexapro, bupropion
Medical marijuana user
Full code
DVT prophylaxis�heparin
Anticipated Discharge: 24 - 48 hours
Subjective/Interval History
-
Date of Service: December 30, 2024
has nausea
Objective Data
-
Labs:
Laboratory Results
12/30/24
07:21
WBC 9.3
Hgb 14.7
Hct 41.0
Plt Count 212
Sodium 137
Potassium 3.5
Chloride 107
Carbon Dioxide 24
BUN 12
Creatinine 0.7
Glucose 81
Calcium 9.4
Total Bilirubin 1.8 H
AST 37 H
ALT 20
Alkaline Phosphatase 78
Vital Signs:
Vital Signs
Temp Pulse Resp BP Pulse Ox
99.0 F 93 18 156/102 96
12/30/24 09:12 12/30/24 09:12 12/30/24 09:12 12/30/24 09:12 12/30/24 09:12
I&O
12/29/24 12/30/24 12/31/24
06:59 06:59 06:59
Intake Total 2169 1000 / 999
Output Total 50 / 50
Balance 2119 1000 / 999
[2024-12-30] MEDS: LEXAPRO 10 MG PO (22:08)
[2024-12-30] MEDS: ATIVAN 0.5 MG PO (22:11)
[2024-12-31] VITALS (7 sets, daily range): BP systolic 99–176; BP diastolic 62–116
[2024-12-31] MEDS: COMPAZINE 5 MG IV (04:05)
[2024-12-31] MEDS: APRESOLINE 5 MG IV (04:07)
[2024-12-31 07:15] LABS: % Basophils 0.5 % (0-2); % Eosinophils 0.6 % (0-6); % Immature Granulocytes 0.5 % (0-0.5); % Lymphocytes 11.5 % (20.5-51.1); % Monocytes 12.1 % (1.7-9.3); % Neutrophils 74.8 % (42.2-75.2); Absolute Eosinophils 0.1 10^3/uL (0-0.7); Absolute Lymphocytes 0.9 10^3/uL (1.2-3.4); Absolute Neutrophils 5.9 10^3/uL (1.4-6.5); Hematocrit 42.3 % (37.0-47.0); Hemoglobin 14.9 g/dL (12.0-16.0); Mean Corp Hgb Conc. 35.2 g/dL (33.0-37.0); Mean Corpuscular Hgb 31.2 pg (27.0-31.0); Mean Corpuscular Volume 88.7 fL (81.0-99.0); Mean Platelet Volume 10.5 fL (7.4-10.4); Nucleated Red Blood Cells % 0 %; Platelet Count 215 10^3/uL (130-400); Red Blood Cell Count 4.77 10^6/uL (4.20-5.40); White Blood Cell Count 7.9 10^3/uL (4.8-10.8)
[2024-12-31 07:39] LABS: ALT (SGPT) 20 U/L (0-35); AST (SGOT) 33 U/L (14-36); Albumin 4.1 g/dl (3.5-5.0); Alkaline Phosphatase 84 U/L (38-126); Blood Urea Nitrogen 10 mg/dl (7-17); Calcium 9.1 mg/dl (8.4-10.2); Carbon Dioxide 22 mmol/L (22-30); Chloride 104 mmol/L (98-107); Estimated Creatinine Clearance 90 ml/min; Glucose 82 mg/dl (70-99); Potassium 3.2 mmol/L (3.5-5.1); Sodium 136 mmol/L (135-145); Total Bilirubin 2.2 mg/dl (0.2-1.3); Total Protein 6.5 g/dl (6.3-8.2); eGFR > 60.00
[2024-12-31] MEDS: ISOPTIN 40 MG PO ×3 (08:39→21:45)
[2024-12-31] MEDS: WELLBUTRIN XL (24 hour extended release) 300 MG PO (08:39)
[2024-12-31] MEDS: HEPARIN 5000 UNITS SC ×2 (08:39→21:45)
[2024-12-31] MEDS: KCL 40 MEQ PO (08:48)
--- NOTE | 2024-12-31 09:33 | W.PN.GI.CBS2 ---
Today's Communication / Plan
-
PLAN:
etiology related recently started Zepbound (with noted concurrent AUNDREA and vomiting) , pancolitis on CT though only mild diarrhea, urologic issue with recent UTI and noted likely chronic UPJ obstruction/recent UTI , Cannibis hyperemesis vs other
Currently on clear liquid diet, okay to advance to full liquid diet to see if she tolerates.
No evidence of ulcer disease on endoscopy, no gastric outlet obstruction noted. No evidence of gallstones noted on imaging.
- Await pathology results. Protonix (pantoprazole) 40 mg PO BID for 2 weeks ,then once a day thereafter.
If symptoms are better and no heartburn, then can taper the pantoprazole to every other day or every three days and then stop.
- Avoid NSAID's.
Pancolitis noted on CT but no diarrhea supported clinically.
Reviewing labs, possible Gilbert's causing elevated total bili.
Zepbound can cause nausea/vomtiing, pt awaure
Cannibis abstinence reinforced and discussed regarding cannabinoid hyperemesis.
f/u with as outpt for her routine colonoscopies.
Assessment / Plan
-
Pt is a 54yo presents with hx obesity with gastric sleeve 2016 and recent start of Zepbound, AVR, pericarditis, HTN, cluster headache, anxiety/depression presents with vomiting. Pt with recent abx for UTI. She now presents with nausea and
vomiting. On admission noted with mild uncomplicated pancolitis infectious/inflammatory, mild hydronephrosis with likely reflecting chronic UPJ obstruction, trace gas with possible cystitis or recent instrumentation. Gastric bypass changes
demonstrated, normal liver and pancreas. Labs with WBC 12,400, hbg 14.7, K 3.4, creat 1.1 bili 1.7, AST 48, alt 20, alk phos 79 and lipase 237. + Cannibis use, no NSAIDs.
-nausea/vomiting
-slight diarrhea prior to admission
-recent start of Zepbound
-CT with pancolitis
-CT with mild hydro/chronic UPJ obstruction/recent UTI
-leukocytosis on admission
-hypokalemia
-AUNDREA on admission
-hx gastric sleeve
other med problems:
-AVR
-pericarditis
-HTN
-headaches
-anxiety/depression
-Cannibis use
-possible rheumatologic issue
EGD- - No gross lesions in the entire esophagus.
- Z-line regular, 38 cm from the incisors. Biopsied.
- 2 cm hiatal hernia.
- A sleeve gastrectomy was found, characterized by
healthy appearing mucosa.
- Erythematous mucosa in the antrum. Biopsied.
- Nodular mucosa in the duodenal bulb. Biopsied.
PLAN:
etiology related recently started Zepbound (with noted concurrent AUNDREA and vomiting) , pancolitis on CT though only mild diarrhea, urologic issue with recent UTI and noted likely chronic UPJ obstruction/recent UTI , Cannibis hyperemesis vs other
Currently on clear liquid diet, okay to advance to full liquid diet to see if she tolerates.
No evidence of ulcer disease on endoscopy, no gastric outlet obstruction noted. No evidence of gallstones noted on imaging.
- Await pathology results. Protonix (pantoprazole) 40 mg PO BID for 2 weeks ,then once a day thereafter.
If symptoms are better and no heartburn, then can taper the pantoprazole to every other day or every three days and then stop.
- Avoid NSAID's.
Pancolitis noted on CT but no diarrhea supported clinically.
Reviewing labs, possible Gilbert's causing elevated total bili.
Zepbound can cause nausea/vomtiing, pt awaure
Cannibis abstinence reinforced and discussed regarding cannabinoid hyperemesis.
f/u with as outpt for her routine colonoscopies.
Subjective
Subjective
Date of Service: December 31, 2024
Patient reports some discomfort in the upper abdomen but no vomiting. No fevers or chills. No bowel movement yet.
Objective
Data Reviewed
Laboratory Data:
Laboratory Results
12/31/24 06:36
12/31/24 06:36
Laboratory Results
Total Bilirubin 2.2 mg/dl (0.2-1.3) H 12/31/24 06:36
AST 33 U/L (14-36) 12/31/24 06:36
ALT 20 U/L (0-35) 12/31/24 06:36
Alkaline Phosphatase 84 U/L (38-126) 12/31/24 06:36
Lipase 172 U/L (23-300) 12/30/24 07:21
Vital Signs and I&O:
Vital Signs
Temp Pulse Resp BP Pulse Ox
98.9 F 93 20 164/106 98
12/31/24 09:02 12/31/24 09:02 12/31/24 09:02 12/31/24 09:03 12/31/24 09:02
I&O
12/30/24 12/31/24 01/01/25
06:59 06:59 06:59
Intake Total 1000 / 1000 1480 / 1480
Balance 1000 / 1000 1480 / 1480
Physical Exam
Physical Exam
GI: Soft, Non Distended and Tender (Discomfort on palpation in the upper abdomen)
[2024-12-31] MEDS: APRESOLINE 10 MG IV ×2 (10:18→18:26)
--- NOTE | 2024-12-31 11:06 | W.PN.HOSP.TC ---
Today's Communication/Plan
-
monitor vitals
see plan
start losartan
hydralazine prn
fulls
replete K
Assessment / Plan
Assessment / Plan
General: Well Developed, Well Nourished and No Apparent Distress
HEENT: NormoCephalic, Moist mucous membranes and Atraumatic
Respiratory: Clear
Cardiac: S1/S2 and Regular Rhythm; No Murmur or Rub
GI: Soft, Non Distended, Normal Bowel Sounds and Tender
Musculoskeletal: No Edema
Neuro: Nonfocal/grossly intact
abd pain V,V likely 2.2 pancolitis, also has moderate left hydronephrosis with markedly dilated renal pelvis with chronic UPJ obstruction. Discussed with patient and she never had any history of UPJ obstruction. Recently treated with UTI. UA
without UTI
meets SIRS criteria (leukocytosis, tachypnea)
-Leukocytosis
-Lactic acidosis; improved. check bcx NGTD
-CT abdomen pelvis shows suspected mild uncomplicated pancolitis likely infectious/inflammatory, trace intravesical gas possibly cystitis or recent instrumentation, moderate left hydronephrosis with markedly dilated renal pelvis progress from prior
likely chronic UPJ obstruction
- EGD 12/30 without any clear ulcerdisease; PPI BID per GI. diet advacne to fulls
-Hold off antibiotics
- Hold Zepbound
- Check norovirus, stool culture if able; cdiff given recent abx. appears no further BM since been here; monitor
-pain control
compazine
could this be 2/2 marijuana use; last use a week ago per patient
GI following; plan for EGD 12/30
# Acute kidney injury
resolved
#Moderate left hydronephrosis with markedly dilated renal pelvis likely chronic UPJ obstruction
-Had UTI 2 weeks ago successfully treated
Evaluated by urology, follow-up outpatient
hypokalemia
replete
# Uncontrolled hypertension secondary to abdominal pain
no hx of HTN
- As needed hydralazine; start losartan
# History of gastric sleeve
Obesity
- Hold Zepbound
Aortic valve replacement
History of recurrent pericarditis
History of possible undiagnosed rheumatological condition
Essential hypertension
- Continue verapamil
History of cluster headaches
Anxiety/depression
- Continue Ativan, Lexapro, bupropion
Medical marijuana user
Full code
DVT prophylaxis�heparin
I spent a total of 52 minutes with the patient or on the floor. More than 50% of this time involved counseling and coordination of care.
Anticipated Discharge: Within 24 hours
Subjective/Interval History
-
Date of Service: December 31, 2024
denies increase pain
Objective Data
-
Labs:
Laboratory Results
12/31/24
06:36
WBC 7.9
Hgb 14.9
Hct 42.3
Plt Count 215
Sodium 136
Potassium 3.2 L
Chloride 104
Carbon Dioxide 22
BUN 10
Creatinine 0.6
Glucose 82
Calcium 9.1
Total Bilirubin 2.2 H
AST 33
ALT 20
Alkaline Phosphatase 84
Vital Signs:
Vital Signs
Temp Pulse Resp BP Pulse Ox
98.9 F 88 20 172/105 96
12/31/24 09:02 12/31/24 10:14 12/31/24 10:14 12/31/24 10:14 12/31/24 10:14
I&O
12/30/24 12/31/24 01/01/25
06:59 06:59 06:59
Intake Total 1000 / 1000 1480 / 1480
Balance 1000 / 1000 1480 / 1480
[2024-12-31] MEDS: COZAAR 25 MG PO (13:12)
[2024-12-31] MEDS: LEXAPRO 10 MG PO (21:45)
[2024-12-31] MEDS: ATIVAN 0.5 MG PO (21:46)
[2025-01-01 03:48] VITALS: BP 108/67
[2025-01-01] MEDS: COMPAZINE 5 MG IV ×2 (05:51→12:46)
[2025-01-01] MEDS: FLUSH (NSS) 1 FLUSH IV (05:53)
[2025-01-01 06:02] LABS: % Basophils 0.7 % (0-2); % Immature Granulocytes 0.5 % (0-0.5); % Lymphocytes 25.4 % (20.5-51.1); % Monocytes 14.3 % (1.7-9.3); % Neutrophils 56.1 % (42.2-75.2); Absolute Eosinophils 0.2 10^3/uL (0-0.7); Absolute Lymphocytes 1.5 10^3/uL (1.2-3.4); Absolute Monocytes 0.9 10^3/uL (0.1-0.6); Absolute Neutrophils 3.3 10^3/uL (1.4-6.5); Hematocrit 38.4 % (37.0-47.0); Hemoglobin 13.6 g/dL (12.0-16.0); Mean Corp Hgb Conc. 35.4 g/dL (33.0-37.0); Mean Corpuscular Hgb 31.9 pg (27.0-31.0); Mean Corpuscular Volume 90.1 fL (81.0-99.0); Mean Platelet Volume 10.3 fL (7.4-10.4); Nucleated Red Blood Cells % 0 %; Platelet Count 217 10^3/uL (130-400); Red Blood Cell Count 4.26 10^6/uL (4.20-5.40); Red Cell Dist. Width 12.6 % (11.5-14.5)
[2025-01-01 06:26] LABS: ALT (SGPT) 17 U/L (0-35); AST (SGOT) 24 U/L (14-36); Albumin 3.4 g/dl (3.5-5.0); Alkaline Phosphatase 68 U/L (38-126); Blood Urea Nitrogen 16 mg/dl (7-17); Calcium 9.3 mg/dl (8.4-10.2); Carbon Dioxide 25 mmol/L (22-30); Chloride 105 mmol/L (98-107); Estimated Creatinine Clearance 68 ml/min; Glucose 72 mg/dl (70-99); Potassium 3.6 mmol/L (3.5-5.1); Sodium 137 mmol/L (135-145); Total Bilirubin 1.7 mg/dl (0.2-1.3); Total Protein 5.7 g/dl (6.3-8.2); eGFR > 60.00
--- NOTE | 2025-01-01 06:28 | PTCARENOTE ---
Pt. vomited small amount of yellow bile right after Compazine was given, will continue to monitor.
[2025-01-01 06:39] VITALS: BMI 23.9
[2025-01-01] MEDS: DILAUDID 0.5 MG IV (07:21)
[2025-01-01] MEDS: HEPARIN 5000 UNITS SC ×2 (07:22→21:21)
[2025-01-01] MEDS: ISOPTIN 40 MG PO ×3 (07:22→21:21)
[2025-01-01] MEDS: WELLBUTRIN XL (24 hour extended release) 300 MG PO (07:22)
[2025-01-01] MEDS: COZAAR 25 MG PO (07:23)
[2025-01-01 07:30] VITALS: BP 163/95
--- NOTE | 2025-01-01 10:14 | W.PN.GI.CBS2 ---
Today's Communication / Plan
-
PLAN:
etiology related recently started Zepbound (with noted concurrent AUNDREA and vomiting) , pancolitis on CT though only mild diarrhea, urologic issue with recent UTI and noted likely chronic UPJ obstruction/recent UTI , Cannibis hyperemesis vs other
Currently on full liquid diet , would not advance it as she did report 1 episode of vomiting today.
She did receive a dose of Dilaudid this morning, I suggested she should hold off of the Dilaudid. This will decrease the gastric emptying and increased risk of nausea.
Ideally would have started Zofran [id number] but she is on escitalopram and there is a risk of prolonged QT if Zofran is started. Holding off for now.
No evidence of ulcer disease on endoscopy, no gastric outlet obstruction noted. No evidence of gallstones noted on imaging.
- Await pathology results. Protonix (pantoprazole) 40 mg IV twice daily. For now and then can switch to PO BID for 2 weeks ,then once a day thereafter.
If symptoms are better and no heartburn, then can taper the pantoprazole to every other day or every three days and then stop.
- Avoid NSAID's.
Pancolitis noted on CT but no diarrhea supported clinically.
Reviewing labs, possible Gilbert's causing elevated total bili.
Zepbound can cause nausea/vomtiing, pt awaure
Cannibis abstinence reinforced and discussed regarding cannabinoid hyperemesis.
Plan for gastric emptying study to stay as long as patient can hold off on taking the narcotics to look for evidence of gastric emptying.
f/u with as outpt for her routine colonoscopies.
Assessment / Plan
-
Pt is a 54yo presents with hx obesity with gastric sleeve 2016 and recent start of Zepbound, AVR, pericarditis, HTN, cluster headache, anxiety/depression presents with vomiting. Pt with recent abx for UTI. She now presents with nausea and
vomiting. On admission noted with mild uncomplicated pancolitis infectious/inflammatory, mild hydronephrosis with likely reflecting chronic UPJ obstruction, trace gas with possible cystitis or recent instrumentation. Gastric bypass changes
demonstrated, normal liver and pancreas. Labs with WBC 12,400, hbg 14.7, K 3.4, creat 1.1 bili 1.7, AST 48, alt 20, alk phos 79 and lipase 237. + Cannibis use, no NSAIDs.
-nausea/vomiting
-slight diarrhea prior to admission
-recent start of Zepbound
-CT with pancolitis
-CT with mild hydro/chronic UPJ obstruction/recent UTI
-leukocytosis on admission
-hypokalemia
-AUNDREA on admission
-hx gastric sleeve
other med problems:
-AVR
-pericarditis
-HTN
-headaches
-anxiety/depression
-Cannibis use
-possible rheumatologic issue
EGD- - No gross lesions in the entire esophagus.
- Z-line regular, 38 cm from the incisors. Biopsied.
- 2 cm hiatal hernia.
- A sleeve gastrectomy was found, characterized by
healthy appearing mucosa.
- Erythematous mucosa in the antrum. Biopsied.
- Nodular mucosa in the duodenal bulb. Biopsied.
PLAN:
etiology related recently started Zepbound (with noted concurrent AUNDREA and vomiting) , pancolitis on CT though only mild diarrhea, urologic issue with recent UTI and noted likely chronic UPJ obstruction/recent UTI , Cannibis hyperemesis vs other
Currently on full liquid diet , would not advance it as she did report 1 episode of vomiting today.
She did receive a dose of Dilaudid this morning, I suggested she should hold off of the Dilaudid. This will decrease the gastric emptying and increased risk of nausea.
Ideally would have started Zofran [id number] but she is on escitalopram and there is a risk of prolonged QT if Zofran is started. Holding off for now.
No evidence of ulcer disease on endoscopy, no gastric outlet obstruction noted. No evidence of gallstones noted on imaging.
- Await pathology results. Protonix (pantoprazole) 40 mg IV twice daily. For now and then can switch to PO BID for 2 weeks ,then once a day thereafter.
If symptoms are better and no heartburn, then can taper the pantoprazole to every other day or every three days and then stop.
- Avoid NSAID's.
Pancolitis noted on CT but no diarrhea supported clinically.
Reviewing labs, possible Gilbert's causing elevated total bili.
Zepbound can cause nausea/vomtiing, pt awaure
Cannibis abstinence reinforced and discussed regarding cannabinoid hyperemesis.
Plan for gastric emptying study to stay as long as patient can hold off on taking the narcotics to look for evidence of gastric emptying.
f/u with as outpt for her routine colonoscopies.
Subjective
Subjective
Date of Service: January 01, 2025
Patient reports that she had an episode of nausea with vomiting this morning and after that some upper abdominal discomfort. She is on full liquid diet and reports that she is tolerating it. No bowel movement yet.
Objective
Data Reviewed
Laboratory Data:
Laboratory Results
01/01/25 04:37
01/01/25 04:37
Laboratory Results
Total Bilirubin 1.7 mg/dl (0.2-1.3) H 01/01/25 04:37
AST 24 U/L (14-36) 01/01/25 04:37
ALT 17 U/L (0-35) 01/01/25 04:37
Alkaline Phosphatase 68 U/L (38-126) 01/01/25 04:37
Lipase 172 U/L (23-300) 12/30/24 07:21
Vital Signs and I&O:
Vital Signs
Temp Pulse Resp BP Pulse Ox
98.5 F 89 18 163/95 98
01/01/25 07:30 01/01/25 07:30 01/01/25 07:30 01/01/25 07:30 01/01/25 08:00
I&O
12/31/24 01/01/25 01/02/25
06:59 06:59 06:59
Intake Total 1480 / 1480 840 / 840
Balance 1480 / 1480 840 / 840
Physical Exam
Physical Exam
GI: Soft, Non Distended and Non Tender
--- NOTE | 2025-01-01 10:57 | W.PN.HOSP.TC ---
Today's Communication/Plan
-
Monitor vital signs see plan
Antiemetics
GI following, possible gastric emptying study
cw fulls
Assessment / Plan
Assessment / Plan
General: Well Developed, Well Nourished and No Apparent Distress
HEENT: NormoCephalic, Moist mucous membranes and Atraumatic
Respiratory: Clear
Cardiac: S1/S2 and Regular Rhythm; No Murmur or Rub
GI: Soft, Non Distended, Normal Bowel Sounds and Tender
Musculoskeletal: No Edema
Neuro: Nonfocal/grossly intact
abd pain V,V likely 2.2 pancolitis, also has moderate left hydronephrosis with markedly dilated renal pelvis with chronic UPJ obstruction. Discussed with patient and she never had any history of UPJ obstruction. Recently treated with UTI. UA
without UTI
meets SIRS criteria (leukocytosis, tachypnea)
-Leukocytosis
-Lactic acidosis; improved. check bcx NGTD
-CT abdomen pelvis shows suspected mild uncomplicated pancolitis likely infectious/inflammatory, trace intravesical gas possibly cystitis or recent instrumentation, moderate left hydronephrosis with markedly dilated renal pelvis progress from prior
likely chronic UPJ obstruction
- EGD 12/30 without any clear ulcer disease; PPI BID per GI. diet advanced to fulls
-Hold off antibiotics
- Hold Zepbound
- Check norovirus, stool culture if able; cdiff given recent abx. appears no further BM since been here; monitor
-pain control
compazine
could this be 2/2 marijuana use; last use a week ago per patient
GI following; still persistently nauseous. GI concerning gastric emptying study. Patient to limit opioid
# Acute kidney injury
resolved
#Moderate left hydronephrosis with markedly dilated renal pelvis likely chronic UPJ obstruction
-Had UTI 2 weeks ago successfully treated
Evaluated by urology, follow-up outpatient
hypokalemia
replete
# Uncontrolled hypertension secondary to abdominal pain
no hx of HTN
- As needed hydralazine; started losartan
# History of gastric sleeve
Obesity
- Hold Zepbound
Aortic valve replacement
History of recurrent pericarditis
History of possible undiagnosed rheumatological condition
Essential hypertension
- Continue verapamil
History of cluster headaches
Anxiety/depression
- Continue Ativan, Lexapro, bupropion
Medical marijuana user
Full code
DVT prophylaxis�heparin
Anticipated Discharge: 24 - 48 hours
Subjective/Interval History
-
Date of Service: January 01, 2025
still nauseous
Objective Data
-
Labs:
Laboratory Results
01/01/25
04:37
WBC 6.0
Hgb 13.6
Hct 38.4
Plt Count 217
Sodium 137
Potassium 3.6
Chloride 105
Carbon Dioxide 25
BUN 16
Creatinine 0.8
Glucose 72
Calcium 9.3
Total Bilirubin 1.7 H
AST 24
ALT 17
Alkaline Phosphatase 68
Vital Signs:
Vital Signs
Temp Pulse Resp BP Pulse Ox
98.5 F 89 18 163/95 98
01/01/25 07:30 01/01/25 07:30 01/01/25 07:30 01/01/25 07:30 01/01/25 08:00
I&O
12/31/24 01/01/25 01/02/25
06:59 06:59 06:59
Intake Total 1480 / 1480 840 / 840
Balance 1480 / 1480 840 / 840
[2025-01-01] MEDS: NSS (PRESERVATIVE FREE) 10 ML IV ×2 (11:39→21:21)
[2025-01-01] MEDS: MIRALAX 17 GRAMS PO (11:39)
[2025-01-01] MEDS: PROTONIX IV 40 MG IV ×2 (11:39→21:21)
[2025-01-01 15:00] VITALS: BP 156/96
[2025-01-01 17:38] VITALS: BP 156/96
[2025-01-01] MEDS: LEXAPRO 10 MG PO (21:22)
[2025-01-01] MEDS: ATIVAN 0.5 MG PO (21:49)
[2025-01-01 23:20] VITALS: BP 160/94
[2025-01-02] MEDS: COMPAZINE 5 MG IV ×2 (03:57→13:41)
[2025-01-02 07:30] VITALS: BP 176/98
[2025-01-02 07:37] LABS: % Basophils 0.7 % (0-2); % Eosinophils 2.2 % (0-6); % Immature Granulocytes 0.4 % (0-0.5); % Lymphocytes 12.8 % (20.5-51.1); % Monocytes 13.2 % (1.7-9.3); % Neutrophils 70.7 % (42.2-75.2); Absolute Basophils 0.1 10^3/uL (0-0.2); Absolute Eosinophils 0.2 10^3/uL (0-0.7); Absolute Lymphocytes 0.9 10^3/uL (1.2-3.4); Absolute Neutrophils 5.2 10^3/uL (1.4-6.5); Hematocrit 40.7 % (37.0-47.0); Hemoglobin 14.5 g/dL (12.0-16.0); Mean Corp Hgb Conc. 35.6 g/dL (33.0-37.0); Mean Corpuscular Hgb 31.7 pg (27.0-31.0); Mean Corpuscular Volume 88.9 fL (81.0-99.0); Mean Platelet Volume 9.9 fL (7.4-10.4); Nucleated Red Blood Cells % 0 %; Platelet Count 255 10^3/uL (130-400); Red Blood Cell Count 4.58 10^6/uL (4.20-5.40); Red Cell Dist. Width 12.3 % (11.5-14.5); White Blood Cell Count 7.3 10^3/uL (4.8-10.8)
[2025-01-02] MEDS: WELLBUTRIN XL (24 hour extended release) 300 MG PO (07:56)
[2025-01-02] MEDS: ISOPTIN 40 MG PO ×3 (07:56→22:00)
[2025-01-02] MEDS: COZAAR 25 MG PO (07:56)
[2025-01-02] MEDS: HEPARIN 5000 UNITS SC (07:57)
[2025-01-02] MEDS: NSS (PRESERVATIVE FREE) 10 ML IV ×2 (07:57→20:00)
[2025-01-02] MEDS: PROTONIX IV 40 MG IV ×2 (07:57→19:59)
[2025-01-02 08:29] LABS: ALT (SGPT) 18 U/L (0-35); AST (SGOT) 25 U/L (14-36); Albumin 3.8 g/dl (3.5-5.0); Alkaline Phosphatase 76 U/L (38-126); Blood Urea Nitrogen 16 mg/dl (7-17); Calcium 9.5 mg/dl (8.4-10.2); Carbon Dioxide 27 mmol/L (22-30); Chloride 103 mmol/L (98-107); Estimated Creatinine Clearance 68 ml/min; Glucose 85 mg/dl (70-99); Potassium 3.6 mmol/L (3.5-5.1); Sodium 138 mmol/L (135-145); Total Bilirubin 1.5 mg/dl (0.2-1.3); Total Protein 6.3 g/dl (6.3-8.2); eGFR > 60.00
[2025-01-02] MEDS: REGLAN 5 MG IV (09:14)
--- NOTE | 2025-01-02 09:57 | W.PN.HOSP.TC ---
Today's Communication/Plan
-
Advance diet
Assessment / Plan
Assessment / Plan
Physical exam:
General: Well Developed, Well Nourished and No Apparent Distress
HEENT: NormoCephalic, Moist mucous membranes and Atraumatic
Respiratory: Clear
Cardiac: S1/S2
GI: Soft, Non Distended, Normal Bowel Sounds and Tender
Musculoskeletal: No Edema
Neuro: Nonfocal/grossly intact
Psych: calm.
# persistent nausea, abd pain V,V
Not certain etiology could be related to medications Zepbound, post infectious gastroparesis, cannabis hyperemesis or others l
Patient feels better. Reports that liquids making her more nauseous would like to try solid food. Her brought her egg dropped K[place] soup last night and she slept well and did not have nausea or pain.
Will try low residual low-fat diet. Discussed with commercial management accountant. Continue Protonix pump inhibitor for now.
Patient was counseled regarding side effect of Zepbound and cannabis, she verbalized understanding.
No signs of active infection. White count normalized and vital signs with no abnormalities
meets SIRS criteria (leukocytosis, tachypnea)
-CT abdomen pelvis shows suspected mild uncomplicated pancolitis likely infectious/inflammatory, trace intravesical gas possibly cystitis or recent instrumentation, moderate left hydronephrosis with markedly dilated renal pelvis progress from prior
likely chronic UPJ obstruction
- EGD 12/30 without any clear ulcer disease; PPI BID per GI. diet advanced to fulls
-Hold off antibiotics
- Hold Zepbound
- Negative blood cultures. No diarrhea or further bowel movements in the hospital while on n.p.o./liquid diet
Advised to avoid using narcotics. As needed Compazine and Reglan.
Appreciate GI help
# Acute kidney injury
resolved
#Moderate left hydronephrosis with markedly dilated renal pelvis likely chronic UPJ obstruction
-Had UTI 2 weeks ago successfully treated
Evaluated by urology, follow-up outpatient
hypokalemia
Resolved
# Uncontrolled hypertension secondary to abdominal pain
no hx of HTN
- As needed hydralazine; started losartan
# History of gastric sleeve
# past medical history morbid obesity, gastric sleeve in 2015
- Hold Zepbound
# bioprosthetic aortic valve replacement
History of recurrent pericarditis
History of possible undiagnosed rheumatological condition
Essential hypertension
- Continue verapamil
History of cluster headaches
Anxiety/depression
- Continue Ativan, Lexapro, bupropion
Medical marijuana user
Full code
DVT prophylaxis�heparin
Total time spent to see the patient, examine the patient, review data and lab results, discuss treatment plan with patient and nursing staff around 55 minutes
Anticipated Discharge: Within 24 hours
Subjective/Interval History
-
Date of Service: January 02, 2025
She would like to try solid food
No chest pain
No abdominal pain
Liquids made her nauseated
Objective Data
-
Labs:
Laboratory Results
01/02/25
07:09
WBC 7.3
Hgb 14.5
Hct 40.7
Plt Count 255
Sodium 138
Potassium 3.6
Chloride 103
Carbon Dioxide 27
BUN 16
Creatinine 0.8
Glucose 85
Calcium 9.5
Total Bilirubin 1.5 H
AST 25
ALT 18
Alkaline Phosphatase 76
Vital Signs:
Vital Signs
Temp Pulse Resp BP Pulse Ox
98.4 F 92 20 176/98 97
01/02/25 07:30 01/02/25 07:30 01/02/25 07:30 01/02/25 07:30 01/02/25 07:30
I&O
01/01/25 01/02/25 01/03/25
06:59 06:59 06:59
Intake Total 840 / 840 1560 / 1560
Balance 840 / 840 1560 / 1560
--- NOTE | 2025-01-02 10:28 | W.PN.GI.CBS2 ---
Today's Communication / Plan
-
PLAN:
etiology related recently started Zepbound (with noted concurrent AUNDREA and vomiting) , pancolitis on CT though only mild diarrhea, urologic issue with recent UTI and noted likely chronic UPJ obstruction/recent UTI , Cannibis hyperemesis vs other
Cannot rule out postinfectious gastroparesis.
No further vomiting but occasional nausea, patient would like us to advance diet, okay for low residue and low-fat diet.
No evidence of ulcer disease on endoscopy, no gastric outlet obstruction noted. No evidence of gallstones noted on imaging.
- Await pathology results. Protonix (pantoprazole) 40 mg IV twice daily. For now and then can switch to PO BID for 2 weeks ,then once a day thereafter.
If symptoms are better and no heartburn, then can taper the pantoprazole to every other day or every three days and then stop.
- Avoid NSAID's.
Pancolitis noted on CT but no diarrhea supported clinically.
Reviewing labs, possible Gilbert's causing elevated total bili.
Zepbound can cause nausea/vomtiing, pt awaure
Cannibis abstinence reinforced and discussed regarding cannabinoid hyperemesis.
Patient is feeling better, holding off on gastric emptying study.
f/u with as outpt for her routine colonoscopies.
Assessment / Plan
-
Pt is a 54yo presents with hx obesity with gastric sleeve 2016 and recent start of Zepbound, AVR, pericarditis, HTN, cluster headache, anxiety/depression presents with vomiting. Pt with recent abx for UTI. She now presents with nausea and
vomiting. On admission noted with mild uncomplicated pancolitis infectious/inflammatory, mild hydronephrosis with likely reflecting chronic UPJ obstruction, trace gas with possible cystitis or recent instrumentation. Gastric bypass changes
demonstrated, normal liver and pancreas. Labs with WBC 12,400, hbg 14.7, K 3.4, creat 1.1 bili 1.7, AST 48, alt 20, alk phos 79 and lipase 237. + Cannibis use, no NSAIDs.
-nausea/vomiting
-slight diarrhea prior to admission
-recent start of Zepbound
-CT with pancolitis
-CT with mild hydro/chronic UPJ obstruction/recent UTI
-leukocytosis on admission
-hypokalemia
-AUNDREA on admission
-hx gastric sleeve
other med problems:
-AVR
-pericarditis
-HTN
-headaches
-anxiety/depression
-Cannibis use
-possible rheumatologic issue
EGD- - No gross lesions in the entire esophagus.
- Z-line regular, 38 cm from the incisors. Biopsied.
- 2 cm hiatal hernia.
- A sleeve gastrectomy was found, characterized by
healthy appearing mucosa.
- Erythematous mucosa in the antrum. Biopsied.
- Nodular mucosa in the duodenal bulb. Biopsied.
PLAN:
etiology related recently started Zepbound (with noted concurrent AUNDREA and vomiting) , pancolitis on CT though only mild diarrhea, urologic issue with recent UTI and noted likely chronic UPJ obstruction/recent UTI , Cannibis hyperemesis vs other
Cannot rule out postinfectious gastroparesis.
No further vomiting but occasional nausea, patient would like us to advance diet, okay for low residue and low-fat diet.
No evidence of ulcer disease on endoscopy, no gastric outlet obstruction noted. No evidence of gallstones noted on imaging.
- Await pathology results. Protonix (pantoprazole) 40 mg IV twice daily. For now and then can switch to PO BID for 2 weeks ,then once a day thereafter.
If symptoms are better and no heartburn, then can taper the pantoprazole to every other day or every three days and then stop.
- Avoid NSAID's.
Pancolitis noted on CT but no diarrhea supported clinically.
Reviewing labs, possible Gilbert's causing elevated total bili.
Zepbound can cause nausea/vomtiing, pt awaure
Cannibis abstinence reinforced and discussed regarding cannabinoid hyperemesis.
Patient is feeling better, holding off on gastric emptying study.
f/u with as outpt for her routine colonoscopies.
Subjective
Subjective
Date of Service: January 02, 2025
Patient without any abdominal pain, nausea anything. Tolerating full liquid diet. No fevers or chills.
Objective
Data Reviewed
Laboratory Data:
Laboratory Results
01/02/25 07:09
01/02/25 07:09
Laboratory Results
Total Bilirubin 1.5 mg/dl (0.2-1.3) H 01/02/25 07:09
AST 25 U/L (14-36) 01/02/25 07:09
ALT 18 U/L (0-35) 01/02/25 07:09
Alkaline Phosphatase 76 U/L (38-126) 01/02/25 07:09
Lipase 172 U/L (23-300) 12/30/24 07:21
Vital Signs and I&O:
Vital Signs
Temp Pulse Resp BP Pulse Ox
98.4 F 92 20 176/98 97
01/02/25 07:30 01/02/25 07:30 01/02/25 07:30 01/02/25 07:30 01/02/25 07:30
I&O
01/01/25 01/02/25 01/03/25
06:59 06:59 06:59
Intake Total 840 / 840 1560 / 1560
Balance 840 / 840 1560 / 1560
Physical Exam
Physical Exam
GI: Soft, Non Distended and Non Tender
[2025-01-02 15:00] VITALS: BP 131/88
[2025-01-02 22:00] VITALS: BP 119/82
[2025-01-02] MEDS: HEPARIN SC (22:00)
[2025-01-02] MEDS: LEXAPRO 10 MG PO (22:00)
[2025-01-02] MEDS: ATIVAN 0.5 MG PO (22:03)
[2025-01-03 07:50] VITALS: BP 129/77
[2025-01-03 08:00] VITALS: BP 129/77
--- NOTE | 2025-01-03 08:57 | W.PN.HOSP.TC ---
Today's Communication/Plan
-
dc home
Assessment / Plan
Assessment / Plan
Physical exam:
General: Well Developed, Well Nourished and No Apparent Distress
HEENT: NormoCephalic, Moist mucous membranes and Atraumatic
Respiratory: Clear
Cardiac: S1/S2
GI: Soft, Non Distended, Normal Bowel Sounds and Tender
Musculoskeletal: No Edema
Neuro: Nonfocal/grossly intact
Psych: calm.
# persistent nausea, abd pain V,V
Likely related to medications Zepbound,
Less likely post infectious gastroparesis, cannabis hyperemesis or others l
Patient feels better. Reports that liquids making her more nauseous would like to try solid food. Her brought her egg dropped Tamaz[place] soup last night and she slept well and did not have nausea or pain.
Will try low residual low-fat diet. Discussed with ladler. Continue Protonix pump inhibitor for now.
Patient was counseled regarding side effect of Zepbound and cannabis, she verbalized understanding.
No signs of active infection. White count normalized and vital signs with no abnormalities
meets SIRS criteria (leukocytosis, tachypnea)
her symptoms resolved after wash out of Zepbound.
-CT abdomen pelvis shows suspected mild uncomplicated pancolitis likely infectious/inflammatory, trace intravesical gas possibly cystitis or recent instrumentation, moderate left hydronephrosis with markedly dilated renal pelvis progress from prior
likely chronic UPJ obstruction
- EGD 12/30 without any clear ulcer disease; PPI BID per GI. diet advanced to fulls
-Hold off antibiotics
- Stopped Zepbound
- Negative blood cultures.
Advised to avoid using narcotics. As needed Compazine and Reglan.
Appreciate GI help
# Acute kidney injury
resolved
#Moderate left hydronephrosis with markedly dilated renal pelvis likely chronic UPJ obstruction
-Had UTI 2 weeks ago successfully treated
Evaluated by urology, follow-up outpatient
#hypokalemia
Resolved
# Uncontrolled hypertension secondary to abdominal pain
no hx of HTN per pt, she is on Verapamil for cluster headache
- As needed hydralazine; started losartan, d/w pt potential side efefcts as hyperkalemia, renal injury, advised to f/w PCP to do blood work and monitor BP at home to share it with her PCP, keep diary, she verbalized understanding. She has home BP
machine.
# History of gastric sleeve
# past medical history morbid obesity, gastric sleeve in 2016
- Hold Zepbound, she is amemeber of weight watcher program, has an angela and follows with them, site prescribed Zepbound for her.
# bioprosthetic aortic valve replacement
#History of recurrent pericarditis, no chest pain or sob in hospital.
# Anxiety/depression
- Continue Ativan, Lexapro, bupropion
# Medical marijuana user, chronic user, could be also contributing to nausea but her symptoms started after initiating Zepbound
Full code
DVT prophylaxis�heparin
Total discharge time spent to see the patient, examine the patient, review data and lab results, discuss discharge plan with patient and nursing staff around 67 minutes
Anticipated Discharge: Today
Subjective/Interval History
-
Date of Service: January 03, 2025
Doing well
No nausea or abdominal pain
Tolerating diet
Objective Data
-
Vital Signs:
Vital Signs
Temp Pulse Resp BP Pulse Ox
98.8 F 77 16 119/82 96
01/02/25 22:00 01/02/25 22:00 01/02/25 22:00 01/02/25 22:00 01/02/25 22:00
I&O
01/02/25 01/03/25 01/04/25
06:59 06:59 06:59
Intake Total 1560 / 1560 720 / 720
Balance 1560 / 1560 720 / 720
[2025-01-03] MEDS: ISOPTIN 40 MG PO (09:08)
[2025-01-03] MEDS: COZAAR 25 MG PO (09:08)
[2025-01-03] MEDS: HEPARIN SC (09:08)
[2025-01-03] MEDS: WELLBUTRIN XL (24 hour extended release) 300 MG PO (09:08)
[2025-01-03] MEDS: NSS (PRESERVATIVE FREE) IV (09:11)
[2025-01-03] MEDS: PROTONIX IV IV (09:12)
--- NOTE | 2025-01-03 09:58 | CM ---
Chart reviewed and patient has been cleared for discharge, plan is to home.
Plan; Home today no needs.
--- NOTE | 2025-01-03 11:24 | W.PN.GI.CBS2 ---
Today's Communication / Plan
-
D/c home today
Zepbound and cannabis cessation
FU with Dr Hodge OP basis
Assessment / Plan
-
Pt is a 54yo presents with hx obesity with gastric sleeve 2016 and recent start of Zepbound, AVR, pericarditis, HTN, cluster headache, anxiety/depression presents with vomiting. Pt with recent abx for UTI. She now presents with nausea and
vomiting. On admission noted with mild uncomplicated pancolitis infectious/inflammatory, mild hydronephrosis with likely reflecting chronic UPJ obstruction, trace gas with possible cystitis or recent instrumentation. Gastric bypass changes
demonstrated, normal liver and pancreas. Labs with WBC 12,400, hbg 14.7, K 3.4, creat 1.1 bili 1.7, AST 48, alt 20, alk phos 79 and lipase 237. + Cannibis use, no NSAIDs.
-nausea/vomiting
-slight diarrhea prior to admission
-recent start of Zepbound
-CT with pancolitis
-CT with mild hydro/chronic UPJ obstruction/recent UTI
-leukocytosis on admission
-hypokalemia
-AUNDREA on admission
-hx gastric sleeve
other med problems:
-AVR
-pericarditis
-HTN
-headaches
-anxiety/depression
-Cannibis use
-possible rheumatologic issue
EGD- - No gross lesions in the entire esophagus.
- Z-line regular, 38 cm from the incisors. Biopsied.
- 2 cm hiatal hernia.
- A sleeve gastrectomy was found, characterized by
healthy appearing mucosa.
- Erythematous mucosa in the antrum. Biopsied.
- Nodular mucosa in the duodenal bulb. Biopsied.
PLAN:
- Cannabis cessation
- Avoid zepbound in future
- Tolerating diet
- Ok from GI perspective for hosp d/c today
-F/u with as outpt for her routine colonoscopies.
GI will sign off please call for ?
Subjective
Subjective
Date of Service: January 03, 2025
She is improved and no further N/V. She is tolerating diet
Objective
Data Reviewed
Laboratory Data:
Laboratory Results
01/02/25 07:09
01/02/25 07:09
Laboratory Results
Total Bilirubin 1.5 mg/dl (0.2-1.3) H 01/02/25 07:09
AST 25 U/L (14-36) 01/02/25 07:09
ALT 18 U/L (0-35) 01/02/25 07:09
Alkaline Phosphatase 76 U/L (38-126) 01/02/25 07:09
Lipase 172 U/L (23-300) 12/30/24 07:21
Vital Signs and I&O:
Vital Signs
Temp Pulse Resp BP Pulse Ox
98.5 F 75 16 129/77 96
01/03/25 07:50 01/03/25 07:50 01/03/25 07:50 01/03/25 07:50 01/03/25 08:37
I&O
01/02/25 01/03/25 01/04/25
06:59 06:59 06:59
Intake Total 1560 / 1560 720 / 720
Balance 1560 / 1560 720 / 720
Physical Exam
Physical Exam
GEN: No acute distress, conversant, pleasant
HEENT: anicteric, extraocular movements intact, clear oropharynx without exudates
GI: soft, non-distended, not tender to palpation, normal active bowel sounds, no hepatosplenomegaly
EXT: warm, well perfused, no edema bilaterally
NEURO: AAOx3, non-focal
--- NOTE | 2025-01-03 12:29 | W.DCSUMMARY ---
Discharge Summary
Discharge Data
Date of Admission: 12/27/24
Date of Discharge: 01/03/25
-
Pending Results: No
Hospital Course
54 years old female with history of gastric sleeve and recently started on Zepbound treatment by weight watcher practitioner presented to the hospital with nausea and vomiting. Scan of the abdomen pelvis showed mild uncomplicated pancolitis which
could be inflammatory or infectious. Patient was evaluated by internet e commerce specialist. She was started on bowel rest and supportive care. Her GI upset symptoms were suspected to be related to the weight loss medicine. Patient did not receive
antibiotic. Patient had upper endoscopy that showed no gross lesions in the entire esophagus with unremarkable finding otherwise. Her symptoms gradually improved and diet was advanced slowly. She was able to tolerate diet well. Incidental
finding on CAT scan showed a chronic ureteropelvic junction obstruction. She was seen by urologist and thought could be congenital recommended outpatient follow-up. Patient did not have renal dysfunction. Patient was noted to have uncontrolled
high blood pressure. She was kept on verapamil and added low-dose losartan. Patient was counseled regarding potential side effects losartan and she verbalized understanding. Patient was advised to follow-up with her primary care doctor and monitor
blood pressure. She remained hemodynamic stable was discharged home in a stable condition.
Discharge Plan
-
Patient Disposition: Home (Routine Discharge)
Discharge Diagnosis/Procedures: Nausea and vomiting, resolved. Likely related to new medications Zepbound.
Continue regular diet, avoid high fat diet. You are followed by gastroenterology.
You were seen by urology for suspected congenital ureteropelvic junction obstruction, follow-up with urology in outpatient setting.
-You were noticed to have high blood pressure. You were started on medicine called losartan, potential side effects include hyperkalemia, renal injury. Monitor your blood pressure at home twice a day and keep a diary to share it with your primary
care physician. Follow-up with your primary doctor to monitor side effects of medications as instructed.
Condition: Good
Diet: Regular
Referrals:
Eloisa Castillo MD [Family Provider] -
Crowley,Nav B., MD [Active] - (call to schedule appointment during January to consider surgical correction of Left Uretero-pelvic Junction Obstruction)
Madhav Burger MD [Active] -
Prescriptions:
New
losartan 25 mg Tablet
25 mg PO DAILY Qty: 30 0RF
Continued
verapamil 40 mg Tablet
40 mg PO TID
lorazepam 0.5 mg Tablet
0.5 mg PO HSPRN PRN (Reason: SLEEP)
escitalopram oxalate [Lexapro] 10 mg Tablet
10 mg PO HS
bupropion HCl [Wellbutrin XL] 300 mg Tablet Extended Release 24 Hr
300 mg PO DAILY
Discontinued
Zepbound 5 mg/0.5 mL Pen Injector
5 mg SC WE
Discharge Orders:
Discharge Patient (As Directed); Ordered 01/03/25
Ordered By: Martina Christensen
Discharge Date and Time
Discharge Date/Time: 01/03/25 11:42
Print Language: SWAZI
== END 2025-01-03 11:42 | disposition home or self-care (01) | DRG 693 ==
LOC: 4 WEST ACU 13:56
PROVIDERS: Internal Medicine; Internal Medicine Gastroenterology; Physician Assistant; ADMITTING PHYSICIAN Hospitalist; ATTENDING PHYSICIAN Internal Medicine; CONSULT PHYSICIAN Internal Medicine Gastroenterology; CONSULT PHYSICIAN Specialist; EMERGENCY PHYSICIAN Emergency Medicine; FAMILY PHYSICIAN Hospitalist
PROC: 0DB98ZX Excision of Duodenum, Via Natural or Artificial Opening Endoscopic, Diagnostic (ICD-10-PCS; 2024-12-30)
PROC: 0DB18ZX Excision of Upper Esophagus, Via Natural or Artificial Opening Endoscopic, Diagnostic (ICD-10-PCS; 2024-12-30)
PROC: 0DB78ZX Excision of Stomach, Pylorus, Via Natural or Artificial Opening Endoscopic, Diagnostic (ICD-10-PCS; 2024-12-30)
DX: N13.0 Hydronephrosis with ureteropelvic junction obstruction (principal); R65.11 Systemic inflammatory response syndrome (SIRS) of non-infectious origin with acute organ dysfunction; N17.9 Acute kidney failure, unspecified; F32.A Depression, unspecified; F12.90 Cannabis use, unspecified, uncomplicated; I10 Essential (primary) hypertension; G44.009 Cluster headache syndrome, unspecified, not intractable; E87.6 Hypokalemia; K44.9 Diaphragmatic hernia without obstruction or gangrene; F41.9 Anxiety disorder, unspecified; E78.00 Pure hypercholesterolemia, unspecified; K31.89 Other diseases of stomach and duodenum; D72.829 Elevated white blood cell count, unspecified; R11.2 Nausea with vomiting, unspecified; T50.995A Adverse effect of other drugs, medicaments and biological substances, initial encounter; Y92.9 Unspecified place or not applicable; Z98.84 Bariatric surgery status; Z87.440 Personal history of urinary (tract) infections; Z88.2 Allergy status to sulfonamides; Z88.1 Allergy status to other antibiotic agents; Z79.85 Long-term (current) use of injectable non-insulin antidiabetic drugs; Z95.3 Presence of xenogenic heart valve
CPT/HCPCS: 88305; 74177; 80053; 81003; 81015; 82248; 83605; 83690; 84484; 85025; 87040; 87086; 88342; 93005; 96361; 96374; 96375; 99285; J1790; Q9967

== ENCOUNTER 2025-01-12 21:50 | Observation (INO) | payer BC, SELFPAY ==
[2025-01-12 15:02] VITALS: BP 106/83
--- NOTE | 2025-01-12 16:49 | ED.GENMED ---
History of Present Illness
General
Chief Complaint: Abdominal Symptoms
Source: patient
Exam Limitations: none
Time Seen by Provider: 01/12/25 16:13
Nursing documentation reviewed up to this point in time: agreed with
History of Present Illness
History of Present Illness:
Patient to ED with complaint of periumbilical abdominal pain. Pain started approx 30 minutes after eating lunch. She states she ate 1/2 chicken breast. Reports pain, n,v. Denies diarrhea. States she has not had a bowel movient since 12/27. SHe
was admitted here on 12/27 with same symptoms. Thought to be related to zebound. THis medication was stopped and she states she was on a low residue diet until approx 3 days ago when she returned to reg diet. Brought to ED by family for eval.
Denies fever/chills.
Past History
Past History
ED Past Medical History: Valvular disease (Moderate aortic regurgitation.), Psychiatric (Anxiety/depression), Other (Recurrent pericarditis, chronic daily chest pain) and Other (Questionable autoimmune disease although extensive workup has been
unremarkable.)
ED Past Surgical History: Cardiac (Aortic valve replacement January 2018), Tonsilectomy and Other ([place] teeth, gastric sleeve surgery 01/2007)
Social History
Tobacco: Non-smoker
Alcohol: None
Drug: Marijuana (Prescribed)
Personal:
Living: with family
Employment: Employed
Family History
Family History: Other (No significant)
Review of Systems
Review of Systems
Allergies reviewed?: Yes
All Other Systems: ROS reviewed and negative except as documented in HPI and ROS
Constitutional: Reports no symptoms
EENT: Reports no symptoms
Respiratory: Reports no symptoms
Cardiac: Reports no symptoms
ABD/GI: Reports abdominal pain, nausea and vomiting
: Reports no symptoms
Musculoskeletal: Reports no symptoms
Skin: Reports no symptoms
Neurological: Reports no symptoms
Psychiatric: Reports no symptoms
Phy Exam
General Physical Exam
General Presentation: moderate distress
General age: appears stated age
General Skin: warm and dry
General Habitus: normal
General Mental: alert
Cardiovascular Exam
Cardiovascular Exam: regular rate/rhythm and no edema
Gastrointestinal Exam
Gastrointestinal Exam: normal bowel sounds, soft, no organomegaly, no pulsatile mass, non distended and no cva tenderness
Palpation: left upper quadrant: Moderate tenderness, left lower quadrant: Mild tenderness, right upper quadrant: Moderate tenderness and right lower quadrant: Mild tenderness
Musculoskeletal Exam
Musculoskeletal Exam: full ROM and neuro vasc intact
Skin Exam
Skin Exam: normal color, warm/dry and no rash
Psychiatric Exam
Psychiatric Exam: normal mood/affect
Course
Orders/Labs/Results
Orders:
Orders
01/12/25 Dinner
NPO
Allow oral meds: Yes
Allow clear liquids: Sips of Clears
NPO with Ice Chips: Yes
01/12/25 15:07
EKG [Electrocardiogram (*1)] Urgent
Reason for Study: Abdominal Pain
EKG- Treatment ONCE
01/12/25 16:38
0.9% Sodium Chloride 1000 ml [Nss] 1,000 ml IV BOLUS
Ondansetron Injectable [Zofran] 4 mg IV NOW STA
01/12/25 16:42
HYDROmorphone [Dilaudid] 0.5 mg IV NOW STA
01/12/25 16:52
Complete Blood Count/With Diff Urgent
01/12/25 17:12
CT Abd/pelvis W Iv Cont Urgent
Comment:
Reason For Exam: periumbilical abd. pain, vomiting.
01/12/25 18:05
Comprehensive Metabolic Panel Urgent
Lipase Urgent
Comment: ADD ON
01/12/25 18:30
Urinalysis Reflex To Culture Urgent
Date Specimen was Collected: 01/12/25
Time Specimen was Collected: 18:22
Urine Microscopic Reflex Cult Urgent
Urine Culture Urgent
BOYD Source: U
Specimen Description:
Date Specimen was Collected: 01/12/25
Time Specimen was Collected: 18:22
01/12/25 18:44
EKG [Electrocardiogram (*1)] Urgent
Reason for Study: Abdominal Pain
Electrocardiogram (*1) Urgent
Reason for Study: Abdominal Pain
01/12/25 19:17
Add On- LAB Urgent
Tests Added?: lipase
01/12/25 19:25
Trimethobenzamide [Tigan] 200 mg IM NOW STA
01/12/25 19:45
0.9% Sodium Chloride 1000 ml [Nss] 1,000 ml IV BOLUS
01/12/25 20:58
HYDROmorphone [Dilaudid] 0.25 mg IV NOW STA
01/12/25 21:33
Admit/Transfer Patient As Directed
Co-Sign Provider:
Level of Care: Observation services
Assign to:: Medical/Surgical
Physician / Group: Angelo
Diagnosis: abdominal pain
PRN Pain Medication Management As Directed
May give lesser potent ordered pain med per pt: Yes
preference::
Protocol:: Medication orders for pain may be administered in a
manner that supports deferring to patient preference
when the pt is:
- Requesting an ordered lesser potent pain medication.
Least to most potent pain medications are defined
as: acetaminophen < NSAID < tramadol < opioids
(morphine, oxycodone, hydromorphone).
- Requesting a lesser dose of the same medication IF
ORDERED.
- Requesting a less intrusive route of administration
if both routes are prescribed by the provider (PO <
IV).
01/12/25 21:34
Code Status As Directed
Resuscitation Status: Full Code
01/12/25 22:00
Flush (0.9% Sodium Chloride) [Flush (Nss)] See Dose Instructions IV PER PROTOCOL
01/12/25 22:57
Acetaminophen [Tylenol] 650 mg PO Q4HPRN PRN
Bisacodyl [Dulcolax] 10 mg RECTAL [id number] PRN
Docusate W/Senna [Senokot-S] 1 tablet PO BIDPRN PRN
Escitalopram Oxalate [Lexapro] 10 mg PO HS
HYDROmorphone [Dilaudid] 0.5 mg IV Q4HPRN PRN
Ketorolac [Toradol] 10 mg IV Q6HPRN PRN
Lactated Ringers [Lr] 1,000 ml IV 75 mls/hr
Lorazepam [Ativan] 0.5 mg PO HSPRN PRN SLEEP
Polyethylene Glycol Powder [Miralax] 17 grams PO DAILYPRN PRN
Trimethobenzamide [Tigan] 200 mg IM Q6HPRN PRN
01/12/25 22:57
Activity As Directed
Activity Level: With Assistance
Vital Signs As Directed
Frequency: Per unit guidelines
DX Deep Vein Thrombosis Video Routine
01/13/25 06:00
Basic Metabolic Panel IN AM
Complete Blood Count/No Diff IN AM
01/13/25 08:00
Bupropion(24Hr)Extended Releas [WELLBUTRIN XL (24 hour extended release)] 300 mg PO DAILY
Losartan [Cozaar] 25 mg PO DAILY
01/13/25 18:00
Enoxaparin Sodium [Lovenox] 40 mg SC QPM
Verapamil Extended Release [Calan Extended Release] 120 mg PO QPM
Abnormal Lab Results
01/12/25 01/12/25 01/12/25
16:52 18:05 18:30
MCH 32.2 H pg
(27.0-31.0)
Absolute Neuts (auto) 9.1 H 10^3/uL
(1.4-6.5)
Absolute Lymphs (auto) 0.7 L 10^3/uL
(1.2-3.4)
Neutrophils % 86.7 H %
(42.2-75.2)
Lymphocytes % 6.2 L %
(20.5-51.1)
Chloride 111 H mmol/L
(98-107)
Carbon Dioxide 20 L mmol/L
(22-30)
BUN 18 H mg/dl
(7-17)
Glucose 104 H mg/dl
(70-99)
Total Protein 6.0 L g/dl
(6.3-8.2)
Urine Ketones 2+ A
(Negative)
Ur Occult Blood Reflex 1+ A
(Negative)
Leukocyte Esterase Rfl 2+ A
(Negative)
Urine Bacteria (Reflex) Many A
(Negative)
Urine Albumin (Reflex) 2+ A
(Neg - Trace)
01/12/25 16:52
01/12/25 18:05
Vital Signs
Initial and Last Documented VS:
Initial Vital Signs
Temp Pulse Resp BP Pulse Ox
98.5 F 92 18 106/83 99
01/12/25 15:02 01/12/25 15:02 01/12/25 15:02 01/12/25 15:02 01/12/25 15:02
Last Documented Vital Signs
Temp Pulse Resp BP Pulse Ox
98.2 F 98 20 194/115 100
01/12/25 23:05 01/13/25 00:16 01/12/25 23:05 01/13/25 00:16 01/12/25 23:05
*Radiology
Radiology exam reviewed: radiology read reviewed
*Pulse Oximetry
Patient hypoxic: no
*Critical Care Note
Total Time (30-74mins, 75-104mins- exclusive of procedures): Not Applicable
Update Note
Update Note:
Patient to ED with return of severe abdominal pain. Admitted here 12/27 for intractable abd. pain, n/v. CT at that time revealed pancolitis. Symptoms thought to be related to zepbound. This medication was discontinued. States she has been home
on limited diet. Today the pain returned. CT tonight confirms pancolitis but improing. No new findings although it is noted study is limited due to lack of contrast. SHe is unable to tolerate PO fluids despited pain meds and nausea medications.
No further vomiting but still complaims of severe nausea and abd. pain. Afebrile. WBC normal. Pancolitis was not thought to be infectious previously. Will hold off on antibiotics forr now. Summer admit to hospitialist for intractable pain n/v
ED Attending Note
-
Portions of this chart may have been created with voice recognition software.� Occasional wrong word or��sound alike� substitutions may have occurred due to the inherent limitations of voice recognition software.
Discharge Plan
Departure
Patient Disposition: Admit
Date of Disposition: 01/12/25
Time of Disposition: 21:02
Presentation/result/management discussed w/ accepting MD/DO: Hospitalist
Patient with high blood pressure during this ER visit?: No
Condition: Fair
Covid-19: Not Applicable
Discharge Problem:
Intractable abdominal pain, Pancolitis, Nausea & vomiting
Interventions
Interventions:
*Risk Screen - Suicide Last Done: 01/12/25 15:02
*General Assessment Last Done: 01/12/25 15:02
*Neglect/Abuse Screening Last Done: 01/12/25 15:02
*ED- Fall Risk Assessment Last Done: 01/12/25 22:52
*ED COVID-19 Vaccine History Last Done: 01/12/25 15:02
*Nursing Disposition Last Done: 01/12/25 22:52
AU-Jciarg-Somwcrogha Assessment Last Done: 01/12/25 18:21
Discharge Date and Time
Discharge Date/Time: 01/12/25 22:52
[2025-01-12] MEDS: ZOFRAN 4 MG IV (16:51)
[2025-01-12] MEDS: DILAUDID 0.5 MG IV (16:51)
[2025-01-12] MEDS: NSS 1000 IV ×2 (16:51→20:00)
[2025-01-12 16:59] LABS: % Basophils 0.8 % (0-2); % Eosinophils 0.4 % (0-6); % Immature Granulocytes 0.4 % (0-0.5); % Lymphocytes 6.2 % (20.5-51.1); % Monocytes 5.5 % (1.7-9.3); % Neutrophils 86.7 % (42.2-75.2); Absolute Basophils 0.1 10^3/uL (0-0.2); Absolute Lymphocytes 0.7 10^3/uL (1.2-3.4); Absolute Monocytes 0.6 10^3/uL (0.1-0.6); Absolute Neutrophils 9.1 10^3/uL (1.4-6.5); Hematocrit 38.3 % (37.0-47.0); Hemoglobin 13.7 g/dL (12.0-16.0); Mean Corp Hgb Conc. 35.8 g/dL (33.0-37.0); Mean Corpuscular Hgb 32.2 pg (27.0-31.0); Mean Corpuscular Volume 89.9 fL (81.0-99.0); Mean Platelet Volume 9.6 fL (7.4-10.4); Nucleated Red Blood Cells % 0 %; Platelet Count 298 10^3/uL (130-400); Red Blood Cell Count 4.26 10^6/uL (4.20-5.40); Red Cell Dist. Width 12.6 % (11.5-14.5); White Blood Cell Count 10.5 10^3/uL (4.8-10.8)
[2025-01-12 18:29] LABS: ALT (SGPT) 21 U/L (0-35); AST (SGOT) 28 U/L (14-36); Albumin 3.7 g/dl (3.5-5.0); Alkaline Phosphatase 73 U/L (38-126); Blood Urea Nitrogen 18 mg/dl (7-17); Calcium 8.6 mg/dl (8.4-10.2); Carbon Dioxide 20 mmol/L (22-30); Chloride 111 mmol/L (98-107); Glucose 104 mg/dl (70-99); Potassium 3.6 mmol/L (3.5-5.1); Sodium 138 mmol/L (135-145); Total Bilirubin 1.1 mg/dl (0.2-1.3); eGFR > 60.00
[2025-01-12 18:33] VITALS: BP 196/107
[2025-01-12 18:37] LABS: Urine Albumin 2+ (Neg - Trace); Urine Bilirubin Negative (Negative); Urine Character Clear (Clear); Urine Color Yellow; Urine Glucose Negative (Negative); Urine Ketone 2+ (Negative); Urine Leukocyte 2+ (Negative); Urine Nitrite Negative (Negative); Urine Occult Blood 1+ (Negative); Urine Urobilinogen Negative (Neg - 1+)
[2025-01-12 18:42] LABS: Urine Squamous Cell >30 /LPF (Few)
[2025-01-12 18:43] LABS: Urine Bacteria Many (Negative)
[2025-01-12 18:44] LABS: Urine Red Blood Cell 0-2 /HPF (0-2)
[2025-01-12 19:00] VITALS: BP 180/103
[2025-01-12 19:51] LABS: Lipase 154 U/L (23-300)
[2025-01-12 19:53] VITALS: BP 190/108
[2025-01-12] MEDS: TIGAN 200 MG IM (20:00)
[2025-01-12] MEDS: DILAUDID 0.25 MG IV (21:04)
--- NOTE | 2025-01-12 21:10 | HPS.HSE ---
Family Physician
-
Family Physician: Eloisa Castillo MD
Chief Complaint
-
No abdominal pain
History of Present Illness
He is a 54-year-old with past medical history significant for aortic stenosis status post valve replacement, gastric sleeve, aortic valve replacement, recurrent pericarditis, possible undiagnosed rheumatologic condition, hypertension, cluster
headaches, anxiety/depression, recent admission for intractable abdominal pain thought to be secondary to Zepbound and managed conservatively with presents to the emergency department with onset of abdominal pain and vomiting today after lunch.
Patient reported that after discharge she was on a low residue diet and tolerated diet for several days with a return to regular diet about 3 days ago. She reported having a regular meal today including pot pie when after the meal she started
having epigastric abdominal discomfort with nonbilious and nonbloody emesis. She also reported that she has not had a bowel movement since her discharge from the hospital and even prior to that on January 04. She denied any bowel melena. She denied
any medic easier. She denied any fevers or chills. She denies any chest pain.
Patient reported that she has not been under Zepbound since her last hospitalization. During that hospitalization she underwent EGD showing no gross lesions in the entire esophagus which did remark unremarkable findings otherwise. Symptoms
gradually improved and diet was advanced slowly. She had an incidental finding of chronic uteropelvic junction obstruction and was seen by urologist thought to be congenital and outpatient follow-up recommended. She has not had any urinary
symptoms.
Emergency Department she was hypertensive to 1 9100 with a pulse of 83 and satting 91% on room air. She was afebrile. UA with leukocyte esterase with few WBCs and bacteria likely contaminated.
CBC is unremarkable.
Electrolyte BUN/creatinine were all within the normal range.
CT of the abdomen pelvis with IV contrast shows resolving prior pancolitis, no obstruction, no ileus no intra-abdominal mass or abscess.
Medical History
Past Medical History
Past Medical History: Reports Other (gastric sleeve, aortic valve replacement, recurrent pericarditis, possible undiagnosed rheumatologic condition, hypertension, cluster headaches, anxiety/depression, )
Past Surgical History: Reports Other (Cardiac (Aortic valve replacement January 2018), Tonsilectomy and Other ([place] teeth, gastric sleeve surgery 01/2007))
Social History
Tobacco: Non-smoker
Alcohol: None
Drug: Marijuana
Family History
Family History: Not pertinent
Allergies / Home Medications
Allergies reflects when Allergies were last updated in [employer].
Home Medications with original date entered in [employer]
Allergy/Medication List:
Allergies
Allergy/AdvReac Type Severity Reaction Status Date / Time
erythromycin base Allergy Vomiting Verified 12/27/24 07:11
[Erythromycin Base]
Sulfa (Sulfonamide Allergy Unknown Verified 12/27/24 07:11
Antibiotics)
Home Medications
bupropion HCl 300 mg 24 hr tablet, extended release (Wellbutrin XL) 300 mg PO DAILY 12/27/24
escitalopram oxalate 10 mg tablet (Lexapro) 10 mg PO HS 12/27/24
lorazepam 0.5 mg tablet 0.5 mg PO HSPRN PRN SLEEP 12/27/24
tirzepatide (weight loss) 5 mg/0.5 mL subcutaneous pen injector (Zepbound) 5 mg SC WE 12/27/24
verapamil 40 mg tablet 40 mg PO TID 12/27/24
Review of Systems
-
History Source: Patient
A 12 point ROS was completed and negative except as noted: Yes
Constitutional: Reports No Symptoms
EENT: Reports No Symptoms
Respiratory: Reports No Symptoms
Cardiac: Reports No Symptoms
Abdomen/GI: Reports Abdominal Pain, Vomiting and Other (No bowel movement)
: Reports No Symptoms
Musculoskeletal: Reports No Symptoms
Skin: Reports No Symptoms
Neurological: Reports No Symptoms
Endocrine: Reports No Symptoms
Hematologic/Lymphatic: Reports No Symptoms
Psych: Reports No Symptoms
Physical Exam
Vital Signs
Vital Signs
Temp Pulse Resp BP Pulse Ox
98.5 F 83 23 190/108 97
01/12/25 15:02 01/12/25 19:31 01/12/25 19:31 01/12/25 19:53 01/12/25 19:55
Physical Exam
General: Well Developed, Well Nourished and No Apparent Distress
HEENT: NormoCephalic, Moist mucous membranes and Atraumatic
Respiratory: Clear
Cardiac: S1/S2 and Regular Rhythm; No Murmur or Rub
GI: Soft, Non Tender, Non Distended, Tender and Other (reduced bowel sounds but remains present); No Organomegaly
Rectal: Deferred by Provider
Musculoskeletal: No Clubbing, No Cyanosis and No Edema
Skin: No Rash
Neuro: Nonfocal/grossly intact
Laboratory Results
-
01/12/25 16:52
01/12/25 18:05
Laboratory Results
Total Bilirubin 1.1 mg/dl (0.2-1.3) 01/12/25 18:05
AST 28 U/L (14-36) 01/12/25 18:05
ALT 21 U/L (0-35) 01/12/25 18:05
Alkaline Phosphatase 73 U/L (38-126) 01/12/25 18:05
Lipase 154 U/L (23-300) 01/12/25 18:05
Data Reviewed
-
CT Scan: Report Reviewed by me
Lab Data: Labs Reviewed by me
Old Records: Reviewed
Impression/Plan
-
IMPRESSION:
54 y.o female with recent admission for GI symptoms including abdominal pain nasuea and vomiting thought secondary to zepbound, possibly GERD and or gastroparesis now presents with recurrence of symptoms after advance to regular diet. Reports
constipation. CT negative for obstruction, reports improvement in prior pancolitis which was managed conservatively. Labs unremarkable. Exam is benign. Duration of abdominal pain x 1 day, vomiting x 3 episodes. Intractable pain remains while in
ED.
PLAN:
Intractable ABD pain - Unclear etiology.
- admit to med/surg observation
- urine cultures, start abx if febrile but u/a is equivocal
- npo for now except meds
- IV fluids, pain control and antiemetics
- serial examinations
- GIC onsult in am if symptoms persist
HTN
- coninue verapamil
- losartan 25 mg
DVT PPX - lovenox sq
Code status - Full Code
[2025-01-12 21:24] VITALS: BP 177/108
[2025-01-12 23:05] VITALS: BP 194/115; BMI 23.4
[2025-01-12] MEDS: TORADOL 10 MG IV (23:28)
[2025-01-12] MEDS: LR 1000 IV (23:28)
[2025-01-12] MEDS: LEXAPRO 10 MG PO (23:28)
[2025-01-12] MEDS: ATIVAN 0.5 MG PO (23:33)
[2025-01-12] MEDS: BENADRYL 12.5 MG IV (23:41)
[2025-01-13] MEDS: CALAN EXTENDED RELEASE 120 MG PO ×2 (00:16→17:15)
[2025-01-13] MEDS: TIGAN 200 MG IM (06:24)
[2025-01-13] MEDS: TORADOL 10 MG IV ×3 (06:48→22:30)
[2025-01-13 06:49] LABS: Hematocrit 35.7 % (37.0-47.0); Hemoglobin 12.4 g/dL (12.0-16.0); Mean Corp Hgb Conc. 34.7 g/dL (33.0-37.0); Mean Corpuscular Hgb 31.8 pg (27.0-31.0); Mean Corpuscular Volume 91.5 fL (81.0-99.0); Mean Platelet Volume 9.5 fL (7.4-10.4); Platelet Count 289 10^3/uL (130-400); White Blood Cell Count 9.1 10^3/uL (4.8-10.8)
[2025-01-13] MEDS: BENADRYL 12.5 MG IV ×3 (06:52→22:30)
[2025-01-13 07:17] LABS: Blood Urea Nitrogen 12 mg/dl (7-17); Calcium 9.3 mg/dl (8.4-10.2); Carbon Dioxide 24 mmol/L (22-30); Chloride 108 mmol/L (98-107); Estimated Creatinine Clearance 60 ml/min; Glucose 81 mg/dl (70-99); Potassium 3.9 mmol/L (3.5-5.1); Sodium 140 mmol/L (135-145); eGFR > 60.00
[2025-01-13 07:46] VITALS: BP 174/106
[2025-01-13] MEDS: WELLBUTRIN XL (24 hour extended release) 300 MG PO (08:25)
[2025-01-13] MEDS: COZAAR 25 MG PO (08:25)
--- NOTE | 2025-01-13 10:05 | W.PN.HOSP.TC ---
Today's Communication/Plan
-
Clear liquid diet and advance as tolerated
Assessment / Plan
Assessment / Plan
Physical exam:
General: Well Developed, Well Nourished and No Apparent Distress
HEENT: Normocephalic, Atraumatic and Moist Mucous Membranes
Respiratory: Clear to Auscultation; Negative Wheezes, Rales or Rhonchi
Cardiac: Regular Rhythm and S1/S2
GI: Soft, Nontender and Nondistended
Musculoskeletal: No Clubbing, No Cyanosis and No Edema
Neuro: Awake, Alert and Oriented
Psych: Calm
A/P:
Abdominal pain associated with nausea and vomiting and constipation:
Suspect GI motility issues and stercoral colitis
Could have been an episode of gastroenteritis as well
If persistent might need to have a colonoscopy but if she continues to improve no need for further GI testing as inpatient
Start clear liquid diet today
She is off weight loss medications for several weeks so doubt this is contributing
CT scan of the abdomen with colitis but improved-hold off antibiotic
Bowel regimen
Supportive care
HTN
- coninue verapamil
- losartan 25 mg
DVT PPX - lovenox sq
Code status - Full Code
Anticipated Discharge: 24 - 48 hours
Subjective/Interval History
-
Date of Service: January 13, 2025
Patient feels better today. Less nausea. No vomiting. Less abdominal discomfort. Afebrile. She is constipated but she tells me she has been this way for 'couple weeks'
Objective Data
-
Labs:
Laboratory Results
01/13/25
06:03
WBC 9.1
Hgb 12.4
Hct 35.7 L
Plt Count 289
Sodium 140
Potassium 3.9
Chloride 108 H
Carbon Dioxide 24
BUN 12
Creatinine 0.9
Glucose 81
Calcium 9.3
Vital Signs:
Vital Signs
Temp Pulse Resp BP Pulse Ox
98.5 F 88 16 174/106 96
01/13/25 07:46 01/13/25 08:25 01/13/25 07:46 01/13/25 08:25 01/13/25 07:46
[2025-01-13 10:40] VITALS: BP 126/73
[2025-01-13] MEDS: PROTONIX 40 MG PO (13:00)
[2025-01-13] MEDS: COLACE 100 MG PO ×2 (13:00→20:17)
--- NOTE | 2025-01-13 14:23 | CON.GI ---
Addendum entered and electronically signed by Lynda Sena MD 01/13/25 16:39:
I saw and examined the patient.
The GRANT OFFICER or PA's note was reviewed and I agree with the note.
Comment:
This patient is a 54-year-old woman who has a history of a gastric sleeve in 2015 who is also on Zepbound. She increased her Zepbound dose on December 21. She started having nausea and vomiting and abdominal pain with that. She was hospitalized on December
to . She was okay for about a week and then started having similar symptoms. Of note she has not had a bowel movement since December 27. She did have an abnormal CAT scan and it did show significant stool in the colon. She did have a colonoscopy
in July 2023 and has had an upper endoscopy as well without any abnormality. This was done on this last recent admission
abd: soft nontender
impression
N/V likely med related
constipation
plan:
enema then laxative
avoid dilaudid
antiemetics
d/w pt That this is likely still residual effects of Zepbound which she took less than a month ago.
clears as tolerated
Original Note:
Consultation
-
Date/Time Consultation Requested: 01/13/251414
Date/Time Consultation Performed: 01/13/251424
Requesting Provider: Denis Pérez MD
Performing Provider: AMITA Miller, Lynda Sena MD
Reason for Consultation: abdominal pain with nausea and vomiting
Medical History
Chief Complaint / HPI
Chief Complaint: abdominal pain, nausea/vomiting
History of Present Illness:
Pt is a 54yo presents with hx obesity with gastric sleeve 2015 and recent start of Zepbound last dose December 21 , AVR, pericarditis, HTN, cluster headache, anxiety/depression and UTI with abx use prior to recent admission with now recurrent
admission with nausea and vomiting. In review with patient she was admitted 12/27- 01/03 with nausea and vomiting with work up including CT non pancolitis, mild hydronephrosis with likely reflecting chronic UPJ obstruction, trace gas with possible
cystitis or recent instrumentation. Gastric bypass changes demonstrated, normal liver and pancreas., EGD with HH, gastric sleeve, erythema in antrum and nodular duodenal bulb with neg bx. She was also seen by urology during that admission with UPJ
finding with unlikely etiology of symptoms and consider OP follow up. Symptoms with concern exacerbation in setting of recent Zepbound with hx gastric sleeve and Cannibis use. She was slowly feeling better on discharge but did receive IV
antiemetics but now with recurrent symptoms.
Per prior review with patient she has struggled with weight her entire life. She admits to childhood obesity then gastric sleeve with improvement. She recent has wt gain up to 160's and started Zepound 3-4 months ago. She did increase
dose after several week then began early December with nausea and vomiting that has persisted. She does also admits to cannibis use which is chronic without change in pattern and did resume use after admission. She also admits to severe constipation
with no stools since 12/27 but has not been tolerating much diet. She denies odynophagia, dysphagia, GERD, hematemesis, or rectal bleeding. Last 07/2023 colonoscopy-non bleeding external and internal hemorrhoids, otherwise normal TI. No NSAID use.
Past Medical History
Past Medical History: HTN, Hypercholesterolemia, Valvular Disease (AVR), Psychiatric (anxiety/depression) and Other (gastric sleeve, pericarditis, cluster headaches)
Past Surgical History: Cardiac (AVR), Tonsilectomy and Other (wisdom teeth, gastric sleeve 2016 )
Social History
Tobacco: Non-Smoker
Alcohol: None
Drug: Marijuana
Personal:
Living: With Family
Employment: Employed
Family History
Family History: Other (no family hx GI issues )
Allergies / Home Medications
Allergy/AdvReac Type Severity Reaction Status Date / Time
erythromycin base Allergy Vomiting Verified 01/12/25 15:01
(Erythromycin Base)
Sulfa (Sulfonamide Allergy Unknown Verified 01/12/25 15:01
Antibiotics)
�Medication �Instructions �Recorded
bupropion HCl 300 mg 24 hr tablet, 300 mg PO DAILY Mental 12/27/24
extended release (Wellbutrin XL) Health/Anxiety
escitalopram oxalate 10 mg tablet 10 mg PO HS Depression 12/27/24
(Lexapro)
lorazepam 0.5 mg tablet 0.5 mg PO HSPRN PRN SLEEP 12/27/24
verapamil 120 mg tablet,extended 120 mg PO QPM Blood Pressure 01/12/25
release
Review of Systems
-
History Source: Patient
Constitutional: Reports Weight Loss
EENT: Reports No Symptoms
Respiratory: Reports No Symptoms
Cardiac: Reports No Symptoms
Abdomen/GI: Reports Abdominal Pain, Nausea, Vomiting and Constipated
: Reports No Symptoms
Musculoskeletal: Reports No Symptoms
Skin: Reports No Symptoms
Neurological: Reports Weakness
Endocrine: Reports No Symptoms
Hematologic/Lymphatic: Reports No Symptoms
Vital Signs
Temp Pulse Resp BP Pulse Ox
98.5 F 72 18 126/73 96
01/13/25 07:46 01/13/25 10:40 01/13/25 10:40 01/13/25 10:40 01/13/25 07:50
Physical Exam
Exam
General: Well Developed, Well Nourished and No Apparent Distress
HEENT: Normocephalic and Anicteric
Respiratory: Clear
Cardiac: Regular Rhythm
GI: Soft, Non Tender and Non Distended
Musculoskeletal: No Clubbing and No Cyanosis
Skin: Warm and Dry
Neuro: Awake, Alert and AO x 3
Psych: Calm
Results
WBC 9.1 10^3/uL (4.8-10.8) 01/13/25 06:03
Hgb 12.4 g/dL (12.0-16.0) 01/13/25 06:03
Hct 35.7 % (37.0-47.0) L 01/13/25 06:03
MCV 91.5 fL (81.0-99.0) 01/13/25 06:03
Plt Count 289 10^3/uL (130-400) 01/13/25 06:03
Absolute Neuts (auto) 9.1 10^3/uL (1.4-6.5) H 01/12/25 16:52
Sodium 140 mmol/L (135-145) 01/13/25 06:03
Potassium 3.9 mmol/L (3.5-5.1) 01/13/25 06:03
Chloride 108 mmol/L (98-107) H 01/13/25 06:03
Carbon Dioxide 24 mmol/L (22-30) 01/13/25 06:03
BUN 12 mg/dl (7-17) 01/13/25 06:03
Creatinine 0.9 mg/dL (0.6-1.0) 01/13/25 06:03
Calcium 9.3 mg/dl (8.4-10.2) 01/13/25 06:03
Total Bilirubin 1.1 mg/dl (0.2-1.3) 01/12/25 18:05
AST 28 U/L (14-36) 01/12/25 18:05
ALT 21 U/L (0-35) 01/12/25 18:05
Alkaline Phosphatase 73 U/L (38-126) 01/12/25 18:05
Lipase 154 U/L (23-300) 01/12/25 18:05
Diagnostic Image Results:
01/12/25 CT A/p with IV contrast
Prior gastric surgery again noted.
finding suggesting pancolitis on recent prior CT likely improved/resolving, evaluation limited without oral contrast.
No intestinal obstruction, right lower quadrant inflammatory changes or free air.
Findings again seen suggesting left ureteropelvic junction obstruction.
12/27/24 CT Abd/pel W Iv And Oral Contr
1. Suspect mild uncomplicated pancolitis, likely of infectious/inflammatory etiology.
2. Moderate left hydronephrosis with markedly dilated renal pelvis, progressed from prior and likely reflecting chronic UPJ obstruction.
3. Trace intravesical gas, possibly reflecting cystitis or recent instrumentation.
Prior GI Procedures:
EGD: 12/30/24 - No gross lesions in the entire esophagus.
- Z-line regular, 38 cm from the incisors. Biopsied.
- 2 cm hiatal hernia.
- A sleeve gastrectomy was found, characterized by
healthy appearing mucosa.
- Erythematous mucosa in the antrum. Biopsied.
- Nodular mucosa in the duodenal bulb. Biopsied.
- Normal examined duodenum.
bx neg unremarkable gastric mucosa
Colonoscopy: [facility] 07/2023 colonoscopy-non bleeding external and internal hemorrhoids, otherwise normal TI.
Assessment / Plan
-
Pt is a 54yo presents with hx obesity with gastric sleeve 2015 and recent start of Zepbound last dose December 21 , AVR, pericarditis, HTN, cluster headache, anxiety/depression and UTI with abx use prior to recent admission with now recurrent
admission with nausea and vomiting. In review with patient she was admitted 12/27- 01/03 with nausea and vomiting with work up including CT non pancolitis, mild hydronephrosis with likely reflecting chronic UPJ obstruction, trace gas with possible
cystitis or recent instrumentation. Gastric bypass changes demonstrated, normal liver and pancreas., EGD with HH, gastric sleeve, erythema in antrum and nodular duodenal bulb with neg bx. She was also seen by urology during that admission with UPJ
finding with unlikely etiology of symptoms and consider OP follow up. Symptoms with concern exacerbation in setting of recent Zepbound with hx gastric sleeve and Cannibis use. She was slowly feeling better on discharge but did receive IV
antiemetics but now with recurrent symptoms. Pt now returns with continued nausea, vomiting, wt loss 23 lbs and severe constipation with no stools since 12/27. Last 07/2023 colonoscopy-non bleeding external and internal hemorrhoids, otherwise
normal TI. No NSAID use. Repeat CT with improved pancolitis. LFT's and lipase remain normal.
-intractable nausea/vomiting
-severe constipation
-recent start of Zepbound
-CT with pancolitis improved on follow up imaging
-CT with mild hydro/chronic UPJ obstruction/recent UTI
-AUNDREA on recent admission
-hx gastric sleeve
other med problems:
-AVR
-pericarditis
-HTN
-headaches
-anxiety/depression
-Cannibis use
-possible rheumatologic issue
PLAN:
Etiology of recurrent admission related to continued side effect of zepbound, constipation(may also be zepound side effect), urologic issue s/p urology eval vs other
prior pancolitis now resolved, recent EGD with stable gastric sleeve
medication is SQ dosing and per review of Karen site and open evidence takes about 4 week or longer to clear
discussed again concern with patient for medication side effect
pt also with Cannabis use resumed after discharge which can add to symptoms
cont supportive care-- antiemetics, IVF
would stop narcotics as can add to symptoms
cont off Zepbound
pt also with constipation cont miralax BID, will give milk and molasses enema
clear diet and advance as tolerated
-
-
Thank you for consultation and allowing me to participate in the patient's care. Please call the information systems administrator GI physician during the after hours with any questions or concerns.
[2025-01-13] MEDS: MIRALAX 17 GRAMS PO (14:25)
[2025-01-13 15:30] VITALS: BP 116/69
--- NOTE | 2025-01-13 15:58 | CM ---
Patient seen at bedside with patient sister. Patient lives with family in a 3 story home. No DME and patient drove herself to hospital. Patient states that she is independent and has no needs. Patient PCP is Dr. Eloisa Castillo and she uses [facility]. Patient OBS and form completed and placed on chart. Patient stated that she will figure out discharge transportation. CM will continue to follow for discharge planning needs.
PLan; home with no needs anticipated
[2025-01-13] MEDS: LOVENOX 40 MG SC (17:16)
[2025-01-13] MEDS: LR 1000 IV (20:16)
[2025-01-13] MEDS: LEXAPRO 10 MG PO (20:17)
[2025-01-13] MEDS: MIRALAX PO (20:17)
[2025-01-13 23:09] VITALS: BP 116/65
[2025-01-14] MEDS: TIGAN 200 MG IM (01:59)
[2025-01-14] MEDS: BENADRYL 12.5 MG IV ×3 (02:48→21:19)
[2025-01-14] MEDS: TORADOL 10 MG IV ×3 (04:43→21:20)
[2025-01-14] MEDS: ATIVAN 0.5 MG PO ×3 (04:44→21:19)
[2025-01-14] MEDS: LR 1000 IV (05:40)
[2025-01-14 07:05] VITALS: BP 137/84
[2025-01-14] MEDS: COLACE 100 MG PO ×2 (08:47→21:19)
[2025-01-14] MEDS: PROTONIX 40 MG PO (08:47)
[2025-01-14] MEDS: WELLBUTRIN XL (24 hour extended release) 300 MG PO (08:47)
[2025-01-14] MEDS: COZAAR 25 MG PO (08:47)
[2025-01-14] MEDS: MIRALAX 17 GRAMS PO ×2 (08:49→21:19)
--- NOTE | 2025-01-14 09:15 | W.PN.HOSP.TC ---
Addendum entered and electronically signed by Denis Pérez MD 01/14/25 13:57:
Was planning discharge as cleared by GI but patient does not feel that she is ready so canceled for now (GI aware) and reevaluate over the next 24 hours
Original Note:
Today's Communication/Plan
-
Discharge planning
Assessment / Plan
Assessment / Plan
Physical exam:
General: Well Developed, Well Nourished and No Apparent Distress
HEENT: Normocephalic, Atraumatic and Moist Mucous Membranes
Respiratory: Clear to Auscultation; Negative Wheezes, Rales or Rhonchi
Cardiac: Regular Rhythm and S1/S2
GI: Soft, Nontender and Nondistended
Musculoskeletal: No Clubbing, No Cyanosis and No Edema
Neuro: Awake, Alert and Oriented
Psych: Calm
A/P:
Abdominal pain associated with nausea and vomiting and constipation:
Related to Zepbound (even though off for a while it still remains in the system)
GI consult appreciated-discussed with GI and cleared for d/c today
Supportive care
HTN
- coninue verapamil
- losartan 25 mg
DVT PPX - lovenox sq
Code status - Full Code
Anticipated Discharge: Today
Subjective/Interval History
-
Date of Service: January 14, 2025
Feels better overall
Objective Data
-
Vital Signs:
Vital Signs
Temp Pulse Resp BP Pulse Ox
97.7 F 73 16 137/84 97
01/14/25 07:05 01/14/25 08:47 01/14/25 07:05 01/14/25 08:47 01/14/25 07:05
I&O
01/13/25 01/14/25 01/15/25
06:59 06:59 06:59
Intake Total 600 / 600
Balance 600 / 600
--- NOTE | 2025-01-14 09:38 | W.PN.GI.CBS2 ---
Addendum entered and electronically signed by Lynda Sena MD 01/14/25 14:38:
I saw and examined the patient.
The TELEGRAPH OFFICE MANAGER or PA's note was reviewed and I agree with the note.
Comment:
Pt is better after bms with enema. still nause
abd: soft
impression
Nausea
constipation
plan:
continue off of zepbound and narcotics
pt understands effects may last several more weeks
small meals as tolerated
no further w/u at this point
will sign off
Original Note:
Today's Communication / Plan
-
Etiology of recurrent admission related to continued side effect of zepbound, constipation(may also be zepound side effect), urologic issue s/p urology eval vs other
prior pancolitis now resolved, recent EGD with stable gastric sleeve
medication is SQ dosing and per review of Karen site and open evidence takes about 4 week or longer to clear
cont off Zepbound and cannabis
pt avoiding narcotics
minimal improvement with Benadryl will stop
cont supportive care-- antiemetics, IVF
cont Miralax and colace BID
cont PPI daily
was considering Reglan but interact with lexapro and Wellbutrin
will trial low residue diet
Assessment / Plan
-
Pt is a 54yo presents with hx obesity with gastric sleeve 2015 and recent start of Zepbound last dose December 21 , AVR, pericarditis, HTN, cluster headache, anxiety/depression and UTI with abx use prior to recent admission with now recurrent
admission with nausea and vomiting. In review with patient she was admitted 12/27- 01/03 with nausea and vomiting with work up including CT non pancolitis, mild hydronephrosis with likely reflecting chronic UPJ obstruction, trace gas with possible
cystitis or recent instrumentation. Gastric bypass changes demonstrated, normal liver and pancreas., EGD with HH, gastric sleeve, erythema in antrum and nodular duodenal bulb with neg bx. She was also seen by urology during that admission with UPJ
finding with unlikely etiology of symptoms and consider OP follow up. Symptoms with concern exacerbation in setting of recent Zepbound with hx gastric sleeve and Cannibis use. She was slowly feeling better on discharge but did receive IV
antiemetics but now with recurrent symptoms. Pt now returns with continued nausea, vomiting, wt loss 23 lbs and severe constipation with no stools since 12/27. Last 07/2023 colonoscopy-non bleeding external and internal hemorrhoids, otherwise
normal TI. No NSAID use. Repeat CT with improved pancolitis. LFT's and lipase remain normal.
-intractable nausea/vomiting
-severe constipation
-recent start of Zepbound
-CT with pancolitis improved on follow up imaging
-CT with mild hydro/chronic UPJ obstruction/recent UTI
-AUNDREA on recent admission
-hx gastric sleeve
other med problems:
-AVR
-pericarditis
-HTN
-headaches
-anxiety/depression
-Cannibis use
-possible rheumatologic issue
PLAN:
Etiology of recurrent admission related to continued side effect of zepbound, constipation(may also be zepound side effect), urologic issue s/p urology eval vs other
prior pancolitis now resolved, recent EGD with stable gastric sleeve
medication is SQ dosing and per review of Karen site and open evidence takes about 4 week or longer to clear
cont off Zepbound and cannabis
pt avoiding narcotics
minimal improvement with Benadryl will stop
cont supportive care-- antiemetics, IVF
cont Miralax and colace BID
cont PPI daily
was considering Reglan but interact with lexapro and Wellbutrin
will trial low residue diet
Subjective
Subjective
Date of Service: January 14, 2025
+ large stool with enema with onset of nausea and pain last PM now improving
Objective
Data Reviewed
Laboratory Data:
Laboratory Results
06/06/25 06:03
01/13/25 06:03
Laboratory Results
Total Bilirubin 1.1 mg/dl (0.2-1.3) 01/12/25 18:05
AST 28 U/L (14-36) 01/12/25 18:05
ALT 21 U/L (0-35) 01/12/25 18:05
Alkaline Phosphatase 73 U/L (38-126) 01/12/25 18:05
Lipase 154 U/L (23-300) 01/12/25 18:05
Vital Signs and I&O:
Vital Signs
Temp Pulse Resp BP Pulse Ox
97.7 F 73 16 137/84 97
01/14/25 07:05 01/14/25 08:47 01/14/25 07:05 01/14/25 08:47 01/14/25 07:05
I&O
01/13/25 01/14/25 01/15/25
06:59 06:59 06:59
Intake Total 600 / 600
Balance 600 / 600
Physical Exam
Physical Exam
HEENT: Anicteric and Moist mucous membranes
Cardiology: Normal Sinus Rhythm
Pulmonary: Clear
GI: Soft, Non Distended and Non Tender
Extremities: No Edema
Neuro: Non Focal
[2025-01-14 15:10] VITALS: BP 132/79
[2025-01-14] MEDS: LOVENOX 40 MG SC (17:22)
[2025-01-14] MEDS: CALAN EXTENDED RELEASE 120 MG PO (17:26)
--- NOTE | 2025-01-14 18:06 | PTCARENOTE ---
Received patient this am AAOX3. Pt tolerated water and ice chips this am. Pt complained of abdominal pain and nausea around [address] Pérez and GI. Pt medicated with IV Benadryl for nausea and Toradol for abdominal pain with relief. Pt
was very anxious. Dr. Pérez made aware. Pt medicated with 0.5 mg Ativan PO for anxiety. Pt slept for several hours. Pt really has not tried a low residue diet at this point. Made patient comfortable. Cont to assess patient status.
[2025-01-14] MEDS: LEXAPRO 10 MG PO (21:19)
[2025-01-14 23:27] VITALS: BP 129/74
[2025-01-15 07:02] LABS: Blood Urea Nitrogen 14 mg/dl (7-17); Calcium 9.1 mg/dl (8.4-10.2); Carbon Dioxide 27 mmol/L (22-30); Chloride 107 mmol/L (98-107); Estimated Creatinine Clearance 54 ml/min; Glucose 79 mg/dl (70-99); Potassium 3.7 mmol/L (3.5-5.1); Sodium 140 mmol/L (135-145); eGFR > 60.00
[2025-01-15 08:28] VITALS: BP 133/78
[2025-01-15] MEDS: WELLBUTRIN XL (24 hour extended release) 300 MG PO (08:42)
[2025-01-15] MEDS: PROTONIX 40 MG PO (08:43)
[2025-01-15] MEDS: COLACE 100 MG PO ×2 (08:43→21:03)
[2025-01-15] MEDS: TORADOL 10 MG IV (08:43)
[2025-01-15] MEDS: COZAAR 25 MG PO (08:43)
[2025-01-15] MEDS: FLUSH (NSS) 1 FLUSH IV ×3 (08:45→12:55)
[2025-01-15] MEDS: BENADRYL 12.5 MG IV (08:45)
--- NOTE | 2025-01-15 09:25 | W.PN.HOSP.TC ---
Today's Communication/Plan
-
Antiemetics. Supportive care.
Assessment / Plan
Assessment / Plan
Physical exam:
General: Well Developed, Well Nourished. Apparent Distress
HEENT: Normocephalic, Atraumatic and Moist Mucous Membranes
Respiratory: Clear to Auscultation; Negative Wheezes, Rales or Rhonchi
Cardiac: Regular Rhythm and S1/S2
GI: Soft, tender and Nondistended
Musculoskeletal: No Clubbing, No Cyanosis and No Edema
Neuro: Awake, Alert and Oriented, no gross neurological deficit
Psych: Anxious
A/P:
Abdominal pain associated with nausea and vomiting and constipation:
Related to Zepbound (even though off for a while it still remains in the system)
GI consult appreciated-discussed with GI and cleared for d/c yesterday but patient still feeling symptomatic
Antiemetics with Phenergan. Can use Reglan as well since having prokinetics but can have side effects of dyskinesia and also interact with her other medications so hold off for now.
Continue bowel regimen
Downgraded to full liquid diet today until she feels improved
Supportive care
HTN
- coninue verapamil 120 mg daily
- losartan 25 mg daily
Anxiety
- On benzodiazepines
- Requested psychiatry consult and they are adjusting some of the medications that can have also GI side effects.
DVT PPX - lovenox sq
Code status - Full Code
Anticipated Discharge: 24 - 48 hours
Subjective/Interval History
-
Date of Service: January 15, 2025
Patient reports abdominal discomfort when trying to eat solid food earlier. She also reports generalized numbness and tingling on and off and feels anxious.
Objective Data
-
Labs:
Laboratory Results
01/15/25
05:54
Sodium 140
Potassium 3.7
Chloride 107
Carbon Dioxide 27
BUN 14
Creatinine 1.0
Glucose 79
Calcium 9.1
Vital Signs:
Vital Signs
Temp Pulse Resp BP Pulse Ox
97.5 F 60 18 133/78 95
01/15/25 08:28 01/15/25 08:43 01/15/25 08:28 01/15/25 08:43 01/15/25 08:37
I&O
01/14/25 01/15/25 01/16/25
06:59 06:59 06:59
Intake Total 600 / 600 420 / 420
Balance 600 / 600 420 / 420
[2025-01-15] MEDS: MIRALAX PO (09:35)
[2025-01-15] MEDS: NSS (PRESERVATIVE FREE) 0.5 ML IV (09:35)
[2025-01-15] MEDS: ATIVAN 1 MG IV (09:36)
--- NOTE | 2025-01-15 09:40 | PTCARENOTE ---
Called to room by pt- c/o epigastric pain/nausea/retching; stated 'My arms and legs feel like they are going numb. I am having a panic attack'. notified. Ativan 1 mg IV given. Will continue to monitor.
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
[2025-01-15] MEDS: COMPAZINE 10 MG IV (12:55)
[2025-01-15 15:20] VITALS: BP 148/99
--- NOTE | 2025-01-15 16:36 | PTCARENOTE ---
Pt AAO x3, sleeping for long interval;very anxious when awake. Needs frequent emotional support. ACOSTA well, OOB to BR; no c/o weakness/dizziness. VSS. On room air- pulse ox 97%, no SOB noted. Abd soft, rounded, pt still c/o 'feels like food is
getting stuck; diet changed to full liquids- pt with poor PO intake. Voiding in BR without difficulty. Resting in bed at present. Will continue to monitor.
[2025-01-15] MEDS: CALAN EXTENDED RELEASE 120 MG PO (17:39)
[2025-01-15] MEDS: LOVENOX 40 MG SC (17:40)
[2025-01-15] MEDS: LEXAPRO 20 MG PO (21:03)
[2025-01-15] MEDS: MIRALAX 17 GRAMS PO (21:04)
[2025-01-15] MEDS: ATIVAN 0.5 MG PO (21:20)
[2025-01-16 00:03] VITALS: BP 116/78
[2025-01-16 06:52] LABS: Hematocrit 39.3 % (37.0-47.0); Hemoglobin 13.7 g/dL (12.0-16.0)
[2025-01-16 07:05] VITALS: BP 122/81
[2025-01-16 07:05] LABS: Blood Urea Nitrogen 14 mg/dl (7-17); Calcium 9.6 mg/dl (8.4-10.2); Carbon Dioxide 27 mmol/L (22-30); Chloride 105 mmol/L (98-107); Estimated Creatinine Clearance 54 ml/min; Glucose 87 mg/dl (70-99); Potassium 3.7 mmol/L (3.5-5.1); Sodium 140 mmol/L (135-145); eGFR > 60.00
[2025-01-16] MEDS: PROTONIX 40 MG PO (08:40)
[2025-01-16] MEDS: COLACE 100 MG PO (08:40)
[2025-01-16] MEDS: WELLBUTRIN XL (24 hour extended release) 150 MG PO ×2 (08:41→12:45)
[2025-01-16] MEDS: MIRALAX 17 GRAMS PO (08:41)
[2025-01-16] MEDS: COZAAR 25 MG PO (08:41)
--- NOTE | 2025-01-16 10:34 | W.PN.HOSP.TC ---
Today's Communication/Plan
-
d/c
Assessment / Plan
Assessment / Plan
Gen: NAD, AAOx3.
Eyes: EOMI, PERRLA, no scleral icterus.
Neck: supple.
CV: RRR, +S1/S2, no m/r/g.
Resp: CTAB, no rales, wheezes, or rhonchi.
Abd: +BS, soft, NT, ND
Skin: No rashes.
Neuro: CN 2-12 intact, non-focal.
Psych: Normal mood and affect.
CT A/P 01/12/25: Prior gastric surgery again noted. Findings suggesting pancolitis on recent prior CT likely improved/resolving, evaluation limited without oral contrast. No intestinal obstruction, right lower quadrant inflammatory changes or free
air. Findings again seen suggesting left ureteropelvic junction obstruction.
Abdominal pain/N/V/constipation:
-due to SE of Zepbound
-GI saw in c/s and cleared the pt for discharge
-Compazine PRN, supportive care
Other problems:
Essential HTN : cont Verapamil/Losartan
Anxiety: cont Wellbutrin XL, Lexapro
FULL/lovenox
Total time spent on d/c = 31 min. This included today's physical exam, progress note, review of laboratory and diagnostic data, preparation of discharge documents and prescriptions, and discussions about the pt's hospital course and discharge plan
with the patient and other medical records secretary involved in the patient's care.
Anticipated Discharge: Today
Subjective/Interval History
-
Date of Service: January 16, 2025
No vomiting since yesterday.
Objective Data
-
Labs:
Laboratory Results
01/16/25
06:06
Hgb 13.7
Hct 39.3
Sodium 140
Potassium 3.7
Chloride 105
Carbon Dioxide 27
BUN 14
Creatinine 1.0
Glucose 87
Calcium 9.6
Vital Signs:
Vital Signs
Temp Pulse Resp BP Pulse Ox
98.4 F 68 16 122/81 96
01/16/25 07:05 01/16/25 08:41 01/16/25 07:05 01/16/25 08:41 01/16/25 07:05
I&O
01/15/25 01/16/25 01/17/25
06:59 06:59 06:59
Intake Total 420 / 420 960 / 960
Balance 420 / 420 960 / 960
--- NOTE | 2025-01-16 11:23 | W.PN.UPDATE ---
Update Note
Progress Note Update
Pt seen, alert, oriented, calm, articulate, with stable mood and affect. Pt denies anxiety or depression. She denies any problem on existing medication combination- Wellbutrin XL 300 mg and Lexapro 10 mg daily, prior to starting Zepbound. Pt has
been on Wellbutrin XL 300 mg for years without side effect and Lexapro for about a year without problems.
Imp: Depressive d/o, stable in remission on existing medications
Rec: Will resume existing psych meds, do not find any reason to risk changing (increasing SSRI could cause GI side effects); pt is in agreement
Will follow
--- NOTE | 2025-01-16 11:52 | CM ---
MD entered order for discharge.
Spoke with pt she said she was ready for discharge.
She will have lunch at hospital and if tolerated will be dc to home.
She will drive her self home.
Offered VN she declined need.
PLAN Home no needs
[2025-01-16 12:00] VITALS: BP 124/78
--- NOTE | 2025-01-16 13:13 | W.DCSUMMARY ---
Discharge Summary
Discharge Data
Date of Admission: 01/12/25
Date of Discharge: 01/16/25
-
Pending Results: No
Hospital Course
Primary diagnoses:
Abdominal pain, nausea, vomiting due to side effects of Zepbound
Secondary diagnoses:
Aortic stenosis status post valve replacement
History of gastric sleeve
Recurrent pericarditis
Possible undiagnosed rheumatological condition
Cluster headaches
Essential hypertension
Anxiety
Depression
Consultants:
Psychiatry
Gastroenterology
Imaging:
CT A/P 01/12/25: Prior gastric surgery again noted. Findings suggesting pancolitis on recent prior CT likely improved/resolving, evaluation limited without oral contrast. No intestinal obstruction, right lower quadrant inflammatory changes or free
air. Findings again seen suggesting left ureteropelvic junction obstruction.
Hospital course: 54-year-old female who presented with a chief complaint of intractable abdominal pain as outlined in the H&P done on admission. CT scan of the abdomen pelvis above. Patient was afebrile and had no leukocytosis. She was initially
n.p.o. and supported with IV fluids. She was treated with antiemetics. Patient was seen in consultation by GI. Her presenting symptoms were due to side effects from Zepbound. Her vomiting resolved and she was tolerating a full liquid diet at the
time of discharge. She was discharged in medically stable condition
Discharge Plan
-
Patient Disposition: Home (Routine Discharge)
Discharge Diagnosis/Procedures: Abdominal pain and nausea Zepbound related.
Diet: Regular
Activity: As tolerated
Blood Work: Please PCP to order CBC, BMP within 1 week
Stand Alone Forms: Return to Work
Referrals:
Eolisa Castillo MD [Family Provider, Internal Medicine] - in less than 1 week
Prescriptions:
Continued
lorazepam 0.5 mg Tablet
0.5 mg PO HSPRN PRN (Reason: SLEEP)
escitalopram oxalate [Lexapro] 10 mg Tablet
10 mg PO HS
bupropion HCl [Wellbutrin XL] 300 mg Tablet Extended Release 24 Hr
300 mg PO DAILY
verapamil 120 mg Tablet Extended Release
120 mg PO QPM
Discharge Orders:
Discharge Patient (As Directed); Ordered 01/16/25
Ordered By: Gary Guajardo
Discharge Date and Time
Print Language: AZERI
--- NOTE | 2025-01-16 13:24 | PTCARENOTE ---
Received patient this am AAOX3. Pt tolerated full liquids. Appetite poor. Denied nausea or vomiting. Pt OOB ambulating in room independently with a steady gait. Offered no complaints. Made patient comfortable. Cont to assess patient status.
== END 2025-01-16 13:35 | disposition home or self-care (01) ==
LOC: 4 EAST ACU 21:50
PROVIDERS: Emergency Medicine; Hospitalist; Nurse Practitioner; ADMITTING PHYSICIAN Internal Medicine; ATTENDING PHYSICIAN Internal Medicine; CONSULT PHYSICIAN Internal Medicine; CONSULT PHYSICIAN Psychiatry & Neurology Psychiatry; EMERGENCY PHYSICIAN Emergency Medicine; FAMILY PHYSICIAN Hospitalist
DX: R11.2 Nausea with vomiting, unspecified (principal); R10.9 Unspecified abdominal pain; T50.995A Adverse effect of other drugs, medicaments and biological substances, initial encounter; R10.33 Periumbilical pain; F41.9 Anxiety disorder, unspecified; F33.40 Major depressive disorder, recurrent, in remission, unspecified; I10 Essential (primary) hypertension; R20.2 Paresthesia of skin; R20.0 Anesthesia of skin; Y92.9 Unspecified place or not applicable; K59.00 Constipation, unspecified; K44.9 Diaphragmatic hernia without obstruction or gangrene; N13.5 Crossing vessel and stricture of ureter without hydronephrosis; R94.31 Abnormal electrocardiogram [ECG] [EKG]; G44.009 Cluster headache syndrome, unspecified, not intractable; Z95.2 Presence of prosthetic heart valve; Z98.84 Bariatric surgery status; Z88.2 Allergy status to sulfonamides; Z88.1 Allergy status to other antibiotic agents; Z87.440 Personal history of urinary (tract) infections; Z79.01 Long term (current) use of anticoagulants
CPT/HCPCS: 74177; 80048; 80053; 81003; 81015; 83690; 85014; 85018; 85025; 85027; 87086; 93005; 96361; 96372; 96374; 96375; 96376; 99285; G0378; Q9967